=== PATIENT | male | born 1955 | race Hispanic/Latino ===

== ENCOUNTER 2018-03-02 20:35 | Inpatient (IN) | payer MEDICARE ==
[2018-03-02] MEDS ORDERED: Dextrose 50% SYRINGE Inj (50 ml) ONE ×2 (20:38→22:43)
[2018-03-02] MEDS ORDERED: Dextrose 50% SYRINGE Inj (50 ml) IVP ONE ×3 (20:46→22:45)
[2018-03-02] MEDS ORDERED: Sodium Chloride 0.9% 1,000 ML IV STA (20:46)
[2018-03-02] MEDS ORDERED: Albuterol-Ipratrop 3 mg / 0.5 (3 ml) UD INH STA ×3 (20:52→21:31)
[2018-03-02 20:57] LABS: BASO # 0.1 K/uL (0.0-0.2); BASO % 0.6 % (0.0-2.0); EOS # 0.2 K/uL (0.0-0.7); EOS % 1.7 % (0.0-4.0); HEMOGLOBIN 10.9 g/dL (12.0-18.0); LYMPH # 0.7 K/uL (1.0-4.3); LYMPH % 6.7 % (20.0-40.0); MEAN CELL VOLUME 93.9 fl (80.0-94.0); MEAN CORPUSCULAR HEMOGLOBIN 32.3 pg (27.0-31.0); MEAN CORPUSCULAR HGB CONC 34.4 g/dL (33.0-37.0); MEAN PLATELET VOLUME 7.3 fl (7.2-11.7); MONO # 0.9 K/uL (0.0-0.8); MONO % 8.4 % (0.0-10.0); NEUT # 8.9 K/uL (1.8-7.0); NEUT % 82.6 % (50.0-75.0); PLATELET COUNT 263 K/uL (130-400); RBC 3.38 Mil/uL (4.40-5.90); RED CELL DISTRIBUTION WIDTH 14.2 % (11.5-14.5); WHITE BLOOD COUNT 10.8 K/uL (4.8-10.8)
--- NOTE | 2018-03-02 21:03 | ED PDOC ---
HPI: Altered Mental Status Time Seen by Provider: 03/02/18 20:44 Chief Complaint (Nursing): Altered Mental Status Chief Complaint (Provider): Altered Mental Status History Per: EMS History/Exam Limitations: Clinical Condition Onset/Duration Of Symptoms: Mins Current Symptoms Are (Timing): Still Present Exacerbating Factor(s): Diabetic Additional Complaint(s): 62 y/o male with a PMHx of CHF, HTN, and DM brought in by ambulance for altered mental status. Patient was picked up at his house and was very confused. EMS report he was supposedly "drinking alcohol". Patient is unable to give history due to current clinical condition. PMD: None Provided Past Medical History Reviewed: Historical Data, Nursing Documentation, Vital Signs Vital Signs: Last Vital Signs Temp 97.5 F L 03/02/18 20:50 Pulse 71 03/02/18 20:50 Resp 20 03/02/18 20:50 BP 187/80 H 03/02/18 20:50 Pulse Ox 99 03/02/18 20:50 - Medical History PMH: CHF, CVA (x3), Diabetes, HTN, Kidney Stones, Chronic Kidney Disease - Surgical History Surgical History: No Surg Hx - Family History Family History: States: Unknown Family Hx - Immunization History Hx Tetanus Toxoid Vaccination: No Hx Influenza Vaccination: No Hx Pneumococcal Vaccination: No - Home Medications Home Medications: Ambulatory Orders Medication Instructions Recorded Amlodipine Besylate [Amlodipine 10 mg PO DAILY 03/02/18 Besilate] Aspirin [Aspirin Chewable] 81 mg PO DAILY 03/02/18 Atorvastatin [Lipitor] 10 mg PO DAILY 03/02/18 Carvedilol [Coreg] 25 mg PO BID 03/02/18 Glimepiride [amaRYL] 2 mg PO DAILY 03/02/18 - Allergies Allergies/Adverse Reactions: Allergies Allergy/AdvReac Type Severity Reaction Status Date / Time No Known Allergies Allergy Verified 06/02/17 09:47 Review of Systems ROS Statement: Except As Marked, All Systems Reviewed And Found Negative Neurological: Positive for: Altered Mental Status Physical Exam - Reviewed Nursing Documentation Reviewed: Yes Vital Signs Reviewed: Yes - Physical Exam Appears: Positive for: In Acute Distress Head Exam: Positive for: ATRAUMATIC, NORMOCEPHALIC Skin: Positive for: Normal Color, Diaphoresis Eye Exam: Positive for: Normal appearance, EOMI, PERRL ENT: Positive for: Normal ENT Inspection Neck: Positive for: Normal, Painless ROM Cardiovascular/Chest: Positive for: Regular Rate, Rhythm, Edema (bilateral leg swelling). Negative for: Murmur Respiratory: Positive for: Decreased Breath Sounds (Coarse breath sounds), Respiratory Distress Pulses-Radial (L): 2+ Pulses-Radial (R): 2+ Gastrointestinal/Abdominal: Positive for: Normal Exam, Soft. Negative for: Tenderness Extremity: Positive for: Normal ROM. Negative for: Deformity Neurologic/Psych: Positive for: Alert (awake and confused) - Laboratory Results Result Diagrams: 03/02/18 20:53 03/02/18 20:53 - ECG ECG: Positive for: Interpreted By Me, Viewed By Me ECG Rhythm: Positive for: Normal QRS, Normal ST Segment, Sinus Rhythm, Right Bundle Branch Block, Nonspecific Changes Rate: 71 O2 Sat by Pulse Oximetry: 99 (RA) Pulse Ox Interpretation: Normal - Radiology X-Ray: Interpreted by Me, Viewed By Me X-Ray Interpretation: Cardiomegaly - Critical Care Total Time (In Min): 120 Documented Critical Care: Time excludes all time spent performint seperately billable procedures Medical Decision Making Medical Decision Making: Time: 2055 Impression: Altered Mental Status Differentials include but not limited to hypoglycemia, EtOH intoxication, respiratory failure due to CHF exacerbation and COPD. Plan: -- ABG -- VBG -- Head CT w/o Contrast -- EKG -- Alcohol Serum -- Ammonia -- BNP -- CMP -- Urine Drug Screen -- Lipase -- Troponin I -- Dextrose 50% Inj 50 ml IVP -- Dextrose 50% Inj 50 ml IVP -- [Duoneb 3 mg/0.5 mg (3ml) UD] 3 ml INH -- Lasix 40 mg IVP -- Sodium Chloride IV 1000 mls/hr -- Nitrostat SL 0.4 mg SL -- Blood Culture -- Peak Flow Pre/Post Tx -- Accucheck upon arrival was less than 20. Two D50s were administered. Time: 2199 -- Spoke to Dr. Donaldson to admit patient to the ICU for persistent hypoglycemia. Time: [address] RESULTS FINDINGS: Brain: No hemorrhage. Left frontal encephalomalacia. Right frontal periventricular lacunar infarct. Moderate large periventricular microischemic changes. No edema. Ventricles: Appropriate for patient's age. Bones/joints: No acute fracture. Soft tissues: Small soft tissue hematoma soft tissue swelling left frontal vertex scalp. Sinuses: No acute sinusitis. Mastoid air cells: No mastoid effusion. IMPRESSION: No acute CT intracranial abnormalities. Thank you for allowing us to participate in the care of your patient. Dictated and Authenticated by: Feuntes Walsh MD 03/02/2018 10:30 PM Eastern Time ([place] & [place]) Time: 2308 -- After reviewing medication prescribed by Dr. Lagos, provider made an assumption that he is his PMD. Patient will be admitted under the service of the hospitalist covering for Dr. Lagos. [address] Espinal who will be on consult for CHF and hypertension. 29 Call given to nephrology production statistical clerk. Scribe Attestation: Documented by Julianne Gauthier acting as a scribe for Dr. Michael Alva MD. Provider Scribe Attestation: All medical record entries made by the Scribe were at my direction and personally dictated by me. I have reviewed the chart and agree that the record accurately reflects my personal performance of the history, physical exam, medical decision making, and the department course for this patient. I have also personally directed, reviewed, and agree with the discharge instructions and disposition. Disposition - Clinical Impression Clinical Impression: Altered mental status, CHF (congestive heart failure), Alcohol abuse, CKD stage 4 due to type 2 diabetes mellitus, Renal failure, Uncontrolled hypertension, Hypokalemia, Hypoglycemia - Patient ED Disposition Is Patient to be Admitted: Yes Discussed With : Aries Donaldson Doctor Will See Patient In The: ED Counseled Patient/Family Regarding: Studies Performed, Diagnosis - Disposition Disposition Time: 22:30 Condition: CRITICAL - Pt Status Changed To: Hospital Disposition Of: Inpatient - Admit Certification Admit to Inpatient:: After my assessment, the patient will require hospitalization for at least two midnights. This is because of the severity of symptoms shown, intensity of services needed, and/or the medical risk in this patient being treated as an outpatient. - POA Present On Arrival: Poor Glycemic Control
[2018-03-02 21:04] LABS: VENOUS BLOOD GAS BASE EXCESS -8.1 mmol/L (0.0-2.0); VENOUS BLOOD GAS PCO2 43 mmHg (40-60); VENOUS BLOOD GAS PO2 29 mm/Hg (30-55); VENOUS BLOOD PH 7.25 (7.32-7.43)
[2018-03-02 21:11] LABS: ABG ALLEN TEST YES; ARTERIAL BLOOD GAS HCO3 19.3 mmol/L (21-28); ARTERIAL BLOOD GAS HEMOGLOBIN 10.1 g/dL (11.7-17.4); ARTERIAL BLOOD GAS O2 CAPACITY 13.9 mL/dL (16-24); ARTERIAL BLOOD GAS O2 CONTENT 13.7 ML/dL (15-23); ARTERIAL BLOOD GAS O2 SAT 98.8 % (95-98); ARTERIAL BLOOD GAS PCO2 33 mm/Hg (35-45); ARTERIAL BLOOD GAS PH 7.34 (7.35-7.45); ARTERIAL BLOOD GAS PO2 89 mm/Hg (80-100); ARTERIAL BLOOD GAS TCO2 18.8 mmol/L (22-28)
[2018-03-02 21:14] LABS: ALB/GLOB RATIO 1.2 (1.0-2.1); ALBUMIN 3.7 g/dL (3.5-5.0); ALT/SGPT 21 U/L (21-72); AST/SGOT 17 U/L (17-59); BLOOD UREA NITROGEN 56 mg/dl (9-20); CALCIUM 8.1 mg/dL (8.4-10.2); GFR AFRICAN-AMERICAN 16; GFR NON-AFRICAN AMERICAN 13; LIPASE 267 U/L (23-300)
[2018-03-02 21:17] LABS: B-TYPE NATRIURETIC PEPTIDE 3200 pg/ml (0-900)
[2018-03-02 21:57] LABS: BANDS 3 % (0-2); BASOPHIL 1 % (0-2); EOSINOPHIL 2 % (0-7); LYMPHOCYTE 10 % (20-50); MONOCYTE 8 % (0-10); NEUTROPHIL 76 % (42-75); TOTAL CELLS COUNTED 100
[2018-03-02 21:58] LABS: ANISOCYTOSIS MODERATE; HYPOCHROMIC SLIGHT; PLATELET ESTIMATE NORMAL (NORMAL); POLYCHROMIC SLIGHT; TOXIC GRANULATION PRESENT
[2018-03-02] MEDS ORDERED: Albuterol-Ipratrop 3 mg / 0.5 (3 ml) UD ONE (22:50)
[2018-03-02 22:53] LABS: BARBITURATES, UR NEGATIVE (NEGATIVE); BENZODIAZEPINES, UR NEGATIVE (NEGATIVE); OPIATES, UR NEGATIVE (NEGATIVE); PHENCYCLIDINE, UR NEGATIVE (NEGATIVE)
--- NOTE | 2018-03-02 23:10 | CP.PCM.HP ---
History of Present Illness - History of Present Illness History of Present Illness: PMD: Dr Lagos Chief Complaint: AMS The patient was seen and examined in the ED HPI: The hx was obtained from the ED Physician and after review of the medical records. He is a 62 years old male with hx of CHF, HTN, CKD refusing dialysis in the past, and DM on Glimepiride. He was brought to the ED from home with Altered Mental Status, confused, unable to give history. The EMS thought that he had been drinking Alcohol. In the ED the nurse noted that the patient was non verbal and unresponsive. He was able to be aroused later in the ED after receiving IV Dextrose. His blood Glucose was 20mg/dl and he received 2Ampsof D50 (50g). His blood glucose of recheck was only 70g/dl.His blood pressure was also elevated at 187/80mmHg. PMH: CHF diastolic dysfunction;( ECHO 06/02/17- EF 60-65 with Hypertensive heart disease and Diastolic dysfunvtion); CVA (x3) first 1973; DM II; HTN, Kidney Stones, CKD refused Dialysis in the past; A Fib apparently off anticoagulation, was on Xarelto in the past; PSH: No surgery noted in records SH: former Smoker quit 25 years ago; No illegal substance use; Used Alcohol in the past; Uses a walker to ambulate FH: Unknown family Hx as pte id unable to give information Allergy: NKDA Medication: Reviewed Present on Admission - Present on Admission Any Indicators Present on Admission: Yes History of DVT/PE: No History of Uncontrolled Diabetes: Yes Urinary Catheter: No Decubitus Ulcer Present: No Review of Systems - Review of Systems Systems not reviewed;Unavailable: Altered Mental Status Review of Systems: Review of systems limited because of AMS. Past Patient History - Infectious Disease Hx of Infectious Diseases: None - Past Medical History & Family History Past Medical History?: Yes - Past Social History Smoking Status: Former Smoker Chewing Tobacco Use: No Cigar Use: No Alcohol: Other Drugs: Denies - CARDIAC Hx Congestive Heart Failure: Yes Hx Hypertension: Yes - PULMONARY Hx Respiratory Disorders: No - NEUROLOGICAL Hx Neurological Disorder: Yes HX Cerebrovascular Accident: Yes - HEENT Hx HEENT Problems: No - RENAL Hx Chronic Kidney Disease: Yes Hx Kidney Stones: Yes - ENDOCRINE/METABOLIC Hx Endocrine Disorders: Yes Hx Diabetes Mellitus Type 2: Yes - HEMATOLOGICAL/ONCOLOGICAL Hx Blood Disorders: No Hx Blood Transfusions: No - INTEGUMENTARY Hx Dermatological Problems: No - MUSCULOSKELETAL/RHEUMATOLOGICAL Hx Musculoskeletal Disorders: No Hx Falls: No - GASTROINTESTINAL Hx Gastrointestinal Disorders: No - GENITOURINARY/GYNECOLOGICAL Hx Genitourinary Disorders: No - PSYCHIATRIC Hx Psychophysiologic Disorder: No Hx Substance Use: No - SURGICAL HISTORY Hx Surgeries: No - ANESTHESIA Hx Anesthesia: No Meds Allergies/Adverse Reactions: Allergies Allergy/AdvReac Type Severity Reaction Status Date / Time No Known Allergies Allergy Verified 06/02/17 09:47 Physical Exam - Constitutional Additional comments: Obtunded, wakes up with being shaken heavily but returns to sleep. - Head Exam Head Exam: ATRAUMATIC, NORMAL INSPECTION, NORMOCEPHALIC - Eye Exam Additional comments: Pupils equal andreacting sluggish to light - ENT Exam ENT Exam: Mucous Membranes Dry, Normal Oropharynx - Neck Exam Neck exam: Positive for: Normal Inspection. Negative for: Lymphadenopathy - Respiratory Exam Respiratory Exam: absent: Rales, Wheezes Additional comments: Expectory Rhonchi diffuse in both lung kline - Cardiovascular Exam Cardiovascular Exam: REGULAR RHYTHM, RRR, +S1, +S2. absent: Gallop - GI/Abdominal Exam GI & Abdominal Exam: Normal Bowel Sounds, Soft. absent: Mass, Organomegaly - Rectal Exam Rectal Exam: Deferred - Extremities Exam Additional comments: 1+ Pitting edema at both lower extremities - Back Exam Back exam: NORMAL INSPECTION - Neurological Exam Additional comments: Semicomatous. No response to verbal commands. responds to shoulder being shaken vinously, opening the eyes. - Psychiatric Exam Additional comments: Responds to being shaken - Skin Skin Exam: Dry, Intact, Normal Color, Warm Results - Vital Signs Recent Vital Signs: Last Vital Signs Temp 97.5 F L 03/02/18 22:17 Pulse 49 L 03/02/18 22:17 Resp 16 03/02/18 22:17 BP 166/75 H 03/02/18 22:17 Pulse Ox 99 03/02/18 22:39 - Labs Result Diagrams: 03/02/18 20:53 03/02/18 20:53 Labs: Laboratory Results - last 24 hr 03/02/18 03/02/18 03/02/18 20:45 20:53 20:53 WBC 10.8 RBC 3.38 L Hgb 10.9 L Hct 31.8 L MCV 93.9 MCH 32.3 H MCHC 34.4 RDW 14.2 Plt Count 263 MPV 7.3 Neut % (Auto) 82.6 H Lymph % (Auto) 6.7 L Mcleod % (Auto) 8.4 Eos % (Auto) 1.7 Baso % (Auto) 0.6 Neut # (Auto) 8.9 H Lymph # (Auto) 0.7 L Mcleod # (Auto) 0.9 H Eos # (Auto) 0.2 Baso # (Auto) 0.1 Neutrophils % (Manual) 76 H Band Neutrophils % 3 H Lymphocytes % (Manual) 10 L Monocytes % (Manual) 8 Eosinophils % (Manual) 2 Basophils % (Manual) 1 Toxic Granulation Present Platelet Estimate Normal Polychromasia Slight Hypochromasia (manual) Slight Anisocytosis (manual) Moderate pCO2 pO2 HCO3 ABG pH ABG Total CO2 ABG O2 Saturation ABG O2 Content ABG Base Excess ABG Hemoglobin ABG Carboxyhemoglobin POC ABG HHb (Measured) ABG Methemoglobin ABG O2 Capacity Zeus Test VBG pH VBG pCO2 VBG HCO3 VBG Total CO2 VBG O2 Sat (Calc) VBG Base Excess VBG Potassium A-a O2 Difference Hgb O2 Saturation Glucose Lactate Vent Mode FiO2 Sodium 134 Potassium 3.2 L Chloride 103 Carbon Dioxide 17 L Anion Gap 17 BUN 56 H Creatinine 4.5 H Est GFR ( Amer) 16 Est GFR (Non-Af Amer) 13 POC Glucose (mg/dL) Random Glucose 316 H Calcium 8.1 L Total Bilirubin 0.4 AST 17 D ALT 21 Alkaline Phosphatase 99 Ammonia 13 L Troponin I 0.0410 NT-Pro-B Natriuret Pep 3200 H Total Protein 6.8 Albumin 3.7 Globulin 3.0 Albumin/Globulin Ratio 1.2 Lipase 267 Venous Blood Potassium Urine Opiates Screen Urine Methadone Screen Ur Barbiturates Screen Ur Phencyclidine Scrn Ur Amphetamines Screen U Benzodiazepines Scrn U Oth Cocaine Metabols U Cannabinoids Screen Alcohol, Quantitative < 10 03/02/18 03/02/18 03/02/18 20:56 21:03 22:06 WBC RBC Hgb Hct MCV MCH MCHC RDW Plt Count MPV Neut % (Auto) Lymph % (Auto) Mcleod % (Auto) Eos % (Auto) Baso % (Auto) Neut # (Auto) Lymph # (Auto) Mcleod # (Auto) Eos # (Auto) Baso # (Auto) Neutrophils % (Manual) Band Neutrophils % Lymphocytes % (Manual) Monocytes % (Manual) Eosinophils % (Manual) Basophils % (Manual) Toxic Granulation Platelet Estimate Polychromasia Hypochromasia (manual) Anisocytosis (manual) pCO2 33 L pO2 29 L 89 HCO3 19.3 L ABG pH 7.34 L ABG Total CO2 18.8 L ABG O2 Saturation 98.8 H ABG O2 Content 13.7 L ABG Base Excess -7.2 L ABG Hemoglobin 10.1 L ABG Carboxyhemoglobin 0.8 POC ABG HHb (Measured) 1.2 ABG Methemoglobin 2.6 ABG O2 Capacity 13.9 L Zeus Test Yes VBG pH 7.25 L VBG pCO2 43 VBG HCO3 17.1 VBG Total CO2 20.2 L VBG O2 Sat (Calc) 66.3 H VBG Base Excess -8.1 L VBG Potassium 2.9 L A-a O2 Difference 19.0 Hgb O2 Saturation 95.4 Glucose 335 H Lactate 1.1 Vent Mode Room air FiO2 21.0 21.0 Sodium 135.0 Potassium Chloride 103.0 Carbon Dioxide Anion Gap BUN Creatinine Est GFR ( Amer) Est GFR (Non-Af Amer) POC Glucose (mg/dL) Random Glucose Calcium Total Bilirubin AST ALT Alkaline Phosphatase Ammonia Troponin I NT-Pro-B Natriuret Pep Total Protein Albumin Globulin Albumin/Globulin Ratio Lipase Venous Blood Potassium 2.9 L Urine Opiates Screen Negative Urine Methadone Screen Negative Ur Barbiturates Screen Negative Ur Phencyclidine Scrn Negative Ur Amphetamines Screen Negative U Benzodiazepines Scrn Negative U Oth Cocaine Metabols Negative U Cannabinoids Screen Negative Alcohol, Quantitative 03/02/18 03/02/18 03/02/18 22:09 22:31 23:02 WBC RBC Hgb Hct MCV MCH MCHC RDW Plt Count MPV Neut % (Auto) Lymph % (Auto) Mcleod % (Auto) Eos % (Auto) Baso % (Auto) Neut # (Auto) Lymph # (Auto) Mcleod # (Auto) Eos # (Auto) Baso # (Auto) Neutrophils % (Manual) Band Neutrophils % Lymphocytes % (Manual) Monocytes % (Manual) Eosinophils % (Manual) Basophils % (Manual) Toxic Granulation Platelet Estimate Polychromasia Hypochromasia (manual) Anisocytosis (manual) pCO2 pO2 HCO3 ABG pH ABG Total CO2 ABG O2 Saturation ABG O2 Content ABG Base Excess ABG Hemoglobin ABG Carboxyhemoglobin POC ABG HHb (Measured) ABG Methemoglobin ABG O2 Capacity Zeus Test VBG pH VBG pCO2 VBG HCO3 VBG Total CO2 VBG O2 Sat (Calc) VBG Base Excess VBG Potassium A-a O2 Difference Hgb O2 Saturation Glucose Lactate Vent Mode FiO2 Sodium Potassium Chloride Carbon Dioxide Anion Gap BUN Creatinine Est GFR ( Amer) Est GFR (Non-Af Amer) POC Glucose (mg/dL) 71 57 L 141 H Random Glucose Calcium Total Bilirubin AST ALT Alkaline Phosphatase Ammonia Troponin I NT-Pro-B Natriuret Pep Total Protein Albumin Globulin Albumin/Globulin Ratio Lipase Venous Blood Potassium Urine Opiates Screen Urine Methadone Screen Ur Barbiturates Screen Ur Phencyclidine Scrn Ur Amphetamines Screen U Benzodiazepines Scrn U Oth Cocaine Metabols U Cannabinoids Screen Alcohol, Quantitative - Impressions Impression: NSR 71/min with signs of Left Atrial enlargement and elevated ST segments in V1- 2 - Imaging and Cardiology CT scan - head Status: Image reviewed by me, Report reviewed by me Additional comment: EXAM: FINDINGS: Brain: No hemorrhage. Left frontal encephalomalacia. Right frontal periventricular lacunar infarct. Moderate large periventricular microischemic changes. No edema. Ventricles: Appropriate for patient's age. Bones/joints: No acute fracture. Soft tissues: Small soft tissue hematoma soft tissue swelling left frontal vertex scalp. Sinuses: No acute sinusitis. Mastoid air cells: No mastoid effusion. IMPRESSION: No acute CT intracranial abnormalities. Chest x-ray Status: Image reviewed by me Additional comment: Increased cardiac silhouette Increased bronchovascular markings Assessment & Plan - Assessment and Plan (Free Text) Assessment: #. DM II with hypoglycemic coma #. Uncontrolled HTN #. CKD stage V #. Hypokalemia #. Chronic CHF diastolic Dysfunction #. Anemia of Chronic Disease #. Bronchospasm Plan: 62 years old male with hx of CHF, HTN, CKD refusing dialysis in the past, and DM on Glimepiride, brought to the ED with Altered Mental Status, confused, unable to give history. Non verbal and unresponsive in ED. He was able to be aroused later after receiving IV Dextrose. His blood Glucose was 20mg/dl and he received 2Ampsof D50 (50g). His blood glucose of recheck was only 70g/dl.His blood pressure was also elevated at 187/80mmHg. #. DM II with hypoglycemic coma due to Glimepiride in patient with CKD and possible metabolic encephalopathy - Admit to ICU - IV Fluid with D10 at 70mls/hr - Accucheck Q1H and titrate Dextrose accordingly - HbA1c #. Uncontrolled HTN - Patient is NPO because of AMS - Hold Oral medication - Hydralizine 20mg IV Q 6H #. CKD stage V ( patient refuse Dialysis in the pst) - Consult Dr Aguilar arts administrator - Gentle IV fluid rehydration #. Hypokalemia probably due to poor intake and the Beta Agonist used - Repleted - Follow electrolytes #. Chronic CHF diastolic Dysfunction. Pro BNP is elevated, although this could be due to the CKD - Consult Dr Tommy Espinal - Repeat ECHO for new EF - Serial Troponin - Serial EKG #. Anemia of Chronic Disease - Follow B12/ Folate and Iron panel - Follow Hb #. Bronchospasm - Duoneb #. Stress ulcer prophylaxis with Pantoprazole #. DVT Prophylaxiw with Lovenox #. Code Status: Full - Date & Time Date: 03/02/18 Time: 23:09
[2018-03-02] MEDS ORDERED: Potassium CL 10 MEQ/50 ML 0 ML ONE (23:40)
[2018-03-03] MEDS: Potassium CL 10mEq/100ml 100 ML IVPB SCH (01:08)
[2018-03-03] MEDS ORDERED: Albuterol-Ipratrop 3 mg / 0.5 (3 ml) UD INH SCH (02:00)
--- NOTE | 2018-03-03 07:09 | RAD ---
Date of service: 03/02/2018 PROCEDURE: CHEST RADIOGRAPH, 1 VIEW HISTORY: ams COMPARISON: None available. FINDINGS: LUNGS: Clear. PLEURA: No pneumothorax or pleural fluid seen. CARDIOVASCULAR: Normal. OSSEOUS STRUCTURES: No significant abnormalities. VISUALIZED UPPER ABDOMEN: Normal. OTHER FINDINGS: None. IMPRESSION: No active disease.
--- NOTE | 2018-03-03 07:38 | CT ---
Date of service: 03/02/2018 PROCEDURE: CT HEAD WITHOUT CONTRAST. HISTORY: ams COMPARISON: None available. TECHNIQUE: Axial computed tomography images were obtained through the head/brain without intravenous contrast. Radiation dose: Total exam DLP = mGy-cm. This CT exam was performed using one or more of the following dose reduction techniques: Automated exposure control, adjustment of the mA and/or kV according to patient size, and/or use of iterative reconstruction technique. FINDINGS: HEMORRHAGE: No intracranial hemorrhage. BRAIN: No mass effect or edema. Chronic periventricular white matter ischemic disease and atrophy. VENTRICLES: Unremarkable. No hydrocephalus. CALVARIUM: Unremarkable. PARANASAL SINUSES: Unremarkable as visualized. No significant inflammatory changes. MASTOID AIR CELLS: Unremarkable as visualized. No inflammatory changes. OTHER FINDINGS: None. IMPRESSION: No intracranial hemorrhage.
--- NOTE | 2018-03-03 07:51 | CARD ---
APPROVED REPORT Date of service: 03/02/2018 <Conclusion> Normal sinus rhythm Possible Left atrial enlargement Incomplete right bundle branch block Possible Anterior infarct, age undetermined T wave abnormality, consider inferior ischemia Abnormal ECG
--- NOTE | 2018-03-03 08:14 | CARD ---
APPROVED REPORT Date of service: 03/03/2018 <Conclusion> Sinus rhythm Left axis deviation Left ventricular hypertrophy with repolarization abnormality Cannot rule out Septal infarct, age undetermined Prolonged QT Abnormal ECG
[2018-03-03 08:46] LABS: IRON 65 ug/dL (49-181)
[2018-03-03 08:49] LABS: CALCIUM 8.9 mg/dL (8.4-10.2)
[2018-03-03 08:51] LABS: HEMOGLOBIN 11.3 g/dL (12.0-18.0); MEAN CELL VOLUME 94.5 fl (80.0-94.0); MEAN CORPUSCULAR HEMOGLOBIN 32.6 pg (27.0-31.0); MEAN CORPUSCULAR HGB CONC 34.5 g/dL (33.0-37.0); RBC 3.46 Mil/uL (4.40-5.90); WHITE BLOOD COUNT 8.9 K/uL (4.8-10.8)
[2018-03-03 08:56] LABS: % IRON SATURATION 22 % (20-55); TOTAL IRON BINDING CAPACITY 299 ug/dL (250-450)
[2018-03-03 08:59] LABS: TROPONIN I 0.04 ng/mL (0.00-0.120)
--- NOTE | 2018-03-03 11:09 | CP.PCM.PN ---
Subjective - Date & Time of Evaluation Date of Evaluation: 03/03/18 Time of Evaluation: 10:00 - Subjective Subjective: Pt is now awake oriented follows commands denies SANTOS no CP no SOB states that his slurred speech and sl right weakness is old from previous CVA, walks with a cane. Objective - Vital Signs/Intake and Output Vital Signs (last 24 hours): Temp Pulse Resp BP Pulse Ox 98.4 F 96 H 21 172/78 H 97 03/03/18 08:00 03/03/18 09:05 03/03/18 08:00 03/03/18 09:05 03/03/18 08:00 Intake and Output: 03/03/18 03/03/18 06:59 18:59 Intake Total 450 Output Total 900 400 Balance -450 -400 - Medications Medications: Current Medications Albuterol/Ipratropium (Duoneb 3 Mg/0.5 Mg (3 Ml) Ud) 3 ml INH RQ6 [facility] Last Admin: 03/03/18 08:45 Dose: 3 ml Amlodipine Besylate (Norvasc) 10 mg PO DAILY [facility] Carvedilol (Coreg) 25 mg PO Q12 [facility] Heparin Sodium (Porcine) (Heparin) 5,000 units SC Q8 [facility] PRN Reason: Protocol Last Admin: 03/03/18 08:52 Dose: 5,000 units Hydralazine HCl (Apresoline) 20 mg IV Q6 [facility] Last Admin: 03/03/18 09:05 Dose: 20 mg Dextrose/Sodium Chloride (Dextrose 5%-0.45% Ns 500 Ml) 1,000 mls @ 50 mls/hr IV .Q20H [facility] Stop: 03/04/18 08:56 Pantoprazole Sodium (Protonix Inj) 40 mg IVP DAILY [facility] Last Admin: 03/03/18 08:52 Dose: 40 mg - Labs Labs: 03/03/18 07:35 03/03/18 07:35 - Constitutional Appears: Non-toxic, Older Than Stated Age, Chronically Ill - Head Exam Head Exam: NORMAL INSPECTION, NORMOCEPHALIC - Eye Exam Eye Exam: EOMI, Normal appearance Pupil Exam: NORMAL ACCOMODATION - ENT Exam ENT Exam: Mucous Membranes Moist, Normal External Ear Exam - Neck Exam Neck Exam: Full ROM. absent: Meningismus - Respiratory Exam Respiratory Exam: NORMAL BREATHING PATTERN. absent: Respiratory Distress - Cardiovascular Exam Cardiovascular Exam: REGULAR RHYTHM, +S1, +S2 - GI/Abdominal Exam GI & Abdominal Exam: Soft, Normal Bowel Sounds. absent: Tenderness - Extremities Exam Extremities Exam: Normal Capillary Refill. absent: Calf Tenderness, Pedal Edema - Back Exam Back Exam: absent: CVA tenderness (L), CVA tenderness (R) - Neurological Exam Neurological Exam: Alert, Awake Neuro motor strength exam: Left Upper Extremity: 5, Right Upper Extremity: 4, Left Lower Extremity: 5, Right Lower Extremity: 4 Additional comments: oriented to person and place slight dysarthria but comprehensible ( pt states old from previous CVA) - Psychiatric Exam Psychiatric exam: Normal Affect, Normal Mood - Skin Skin Exam: Dry, Normal Color, Warm Assessment and Plan - Assessment and Plan (Free Text) Assessment: 62 years old male with hx of CVA, CHF, HTN, CKD refusing dialysis in the past, and DM on Glimepiride, brought to the ED with Altered Mental Status, confused, unable to give history. Non verbal and unresponsive in ED. His blood Glucose was 20mg/dl and he received 2 Ampsof D50 (50g). His blood glucose of recheck was only 70g/dl. His blood pressure was also elevated at 187/80mmHg. Pt was admitted to ICU for close monitoring of Glucose and BP. 1. DM II with hypoglycemic coma due to Glimepiride in patient with CKD - Pt received D50 3 amps in the ED - IV Fluid with D10 at 70mls/hr - Accucheck Q1H and titrate Dextrose accordingly - HbA1c 2. Uncontrolled HTN - Hydralizine 20mg IV Q 6H -Cardio consulted- Dr Espinal -started Coreg and Norvasc -will add Hydralazine PO as BP not yet controlled 3. CKD stage V , worsening ( patient refused Dialysis in the past) - Consult Dr Aguilar architecture consultant - Gentle IV fluid rehydration 4. Hypokalemia probably due to poor intake and the Beta Agonist used - Repleted - Follow electrolytes 5. Chronic CHF diastolic Dysfunction. Pro BNP is elevated, although this could be due to the CKD - Consult Dr Tommy Espinal - Repeat ECHO for new EF - Serial Troponin- negative so far - Serial EKG 6. Anemia of Chronic Renal Disease #. Stress ulcer prophylaxis with Pantoprazole #. DVT Proph with Lovenox #. Code Status: Full
--- NOTE | 2018-03-03 12:04 | CP.PCM.CON ---
History of Present Illness - History of Present Illness History of Present Illness: This 62-year-old man was brought to the emergency room unresponsive and was found to have hypoglycemia with a blood sugar of 20 mg percent which promptly responded to intravenous infusion of glucose with improvement in his level of consciousness. The patient has a long history of hypertension and diabetes and his history was obtained by reviewing his old chart which included prior hospitalizations at [facility] and a visit to the emergency room for of cool intoxication. 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 He uses a walker at home. He is an ex- smoker who quit smoking more than 25 years back. Apparently the patient has been noncompliant as far as taking his medications is concerned. The patient is reluctant to answer questions readily. His contact phone number on his chart is nonfunctional. And his history was opted by reviewing his hospitalization charts since 2015. Physical examination shows a middle aged man was able to breathe comfortably lying virtually flat in bed. His respiratory rate was 16 breaths per minute and his heart rate was 90 bpm regular with a blood pressure of 190/70 mmHg. The patient had recently received albuterol respiratory treatment. His extremities were warm. His nailbeds were pink. There was no central or peripheral cyanosis. His pulse oximetry revealed and oxygen saturation of 98% while on oxygen supplement by nasal cannula. There was no pedal edema. The pedal pulses were feeble but distinct of present. There were no carotid bruits. The apex was not palpable the first and second heart sounds were normal. There was no murmur or gallop. Expedition was slightly prolonged there were no rales and there was no wheezing. Abdomen was soft and liver and spleen are not palpable. His electrocardiogram showed sinus rhythm with a pattern of left ventricular hypertrophy. His echocardiogram revealed a normal-sized left ventricle with preserved left ventricular systolic function and a depressed diastolic compliance. The pattern was identical to the echocardiogram of May 2017 at [facility]. His lab data was noted. The patient has had chronic azotemia and apparently he has declined to have hemodialysis. His troponin levels were ruled out any evidence of myocyte injury. Impression: Hypoglycemia probably secondary to irregular food intake while on 90 diabetic medications. History of hypertension and diabetes mellitus with multiple cerebrovascular accidents in the past, CKD stage III, (?ETOH abuse) I have reintroduced his antihypertensives regimen and withheld albuterol treatments which could aggravate his hypertension. At this point is hemodynamically stable. Past Patient History - Infectious Disease Hx of Infectious Diseases: None - Past Medical History & Family History Past Medical History?: Yes - Past Social History Smoking Status: Former Smoker Chewing Tobacco Use: No Cigar Use: No Alcohol: Other Drugs: Denies - CARDIAC Hx Congestive Heart Failure: Yes Hx Hypertension: Yes - PULMONARY Hx Respiratory Disorders: No - NEUROLOGICAL Hx Neurological Disorder: Yes HX Cerebrovascular Accident: Yes - HEENT Hx HEENT Problems: No - RENAL Hx Chronic Kidney Disease: Yes Hx Kidney Stones: Yes - ENDOCRINE/METABOLIC Hx Endocrine Disorders: Yes Hx Diabetes Mellitus Type 2: Yes - HEMATOLOGICAL/ONCOLOGICAL Hx Blood Disorders: No Hx Blood Transfusions: No - INTEGUMENTARY Hx Dermatological Problems: No - MUSCULOSKELETAL/RHEUMATOLOGICAL Hx Musculoskeletal Disorders: No Hx Falls: No - GASTROINTESTINAL Hx Gastrointestinal Disorders: No - GENITOURINARY/GYNECOLOGICAL Hx Genitourinary Disorders: No - PSYCHIATRIC Hx Psychophysiologic Disorder: No Hx Substance Use: No - SURGICAL HISTORY Hx Surgeries: No - ANESTHESIA Hx Anesthesia: No Meds Allergies/Adverse Reactions: Allergies Allergy/AdvReac Type Severity Reaction Status Date / Time No Known Allergies Allergy Verified 06/02/17 09:47 - Medications Medications: Current Medications Amlodipine Besylate (Norvasc) 10 mg PO DAILY [facility] Last Admin: 03/03/18 11:27 Dose: 10 mg Carvedilol (Coreg) 25 mg PO Q12 [facility] Last Admin: 03/03/18 11:27 Dose: 25 mg Heparin Sodium (Porcine) (Heparin) 5,000 units SC Q8 [facility] PRN Reason: Protocol Last Admin: 03/03/18 08:52 Dose: 5,000 units Hydralazine HCl (Apresoline) 20 mg IV Q6 [facility] Last Admin: 03/03/18 09:05 Dose: 20 mg Dextrose/Sodium Chloride (Dextrose 5%-0.45% Ns 500 Ml) 1,000 mls @ 50 mls/hr IV .Q20H [facility] Stop: 03/04/18 08:56 Last Admin: 03/03/18 09:00 Dose: 50 mls/hr Pantoprazole Sodium (Protonix Inj) 40 mg IVP DAILY [facility] Last Admin: 03/03/18 08:52 Dose: 40 mg Results - Vital Signs Recent Vital Signs: Last Vital Signs Temp 98.4 F 08/04/18 08:00 Pulse 91 H 03/03/18 11:27 Resp 21 03/03/18 08:00 BP 161/75 H 03/03/18 11:27 Pulse Ox 97 03/03/18 08:00 - Labs Result Diagrams: 03/03/18 07:35 03/03/18 07:35 Labs: Laboratory Results - last 24 hr 03/02/18 03/02/18 03/02/18 20:45 20:53 20:53 WBC 10.8 RBC 3.38 L Hgb 10.9 L Hct 31.8 L MCV 93.9 MCH 32.3 H MCHC 34.4 RDW 14.2 Plt Count 263 MPV 7.3 Neut % (Auto) 82.6 H Lymph % (Auto) 6.7 L Ocean % (Auto) 8.4 Eos % (Auto) 1.7 Baso % (Auto) 0.6 Neut # (Auto) 8.9 H Lymph # (Auto) 0.7 L Ocean # (Auto) 0.9 H Eos # (Auto) 0.2 Baso # (Auto) 0.1 Neutrophils % (Manual) 76 H Band Neutrophils % 3 H Lymphocytes % (Manual) 10 L Monocytes % (Manual) 8 Eosinophils % (Manual) 2 Basophils % (Manual) 1 Toxic Granulation Present Platelet Estimate Normal Polychromasia Slight Hypochromasia (manual) Slight Anisocytosis (manual) Moderate pCO2 pO2 HCO3 ABG pH ABG Total CO2 ABG O2 Saturation ABG O2 Content ABG Base Excess ABG Hemoglobin ABG Carboxyhemoglobin POC ABG HHb (Measured) ABG Methemoglobin ABG O2 Capacity Zeus Test VBG pH VBG pCO2 VBG HCO3 VBG Total CO2 VBG O2 Sat (Calc) VBG Base Excess VBG Potassium A-a O2 Difference Hgb O2 Saturation Glucose Lactate Vent Mode FiO2 Sodium 134 Potassium 3.2 L Chloride 103 Carbon Dioxide 17 L Anion Gap 17 BUN 56 H Creatinine 4.5 H Est GFR ( Amer) 16 Est GFR (Non-Af Amer) 13 POC Glucose (mg/dL) Random Glucose 316 H Calcium 8.1 L Iron TIBC % Saturation Total Bilirubin 0.4 AST 17 D ALT 21 Alkaline Phosphatase 99 Ammonia 13 L Troponin I 0.0410 NT-Pro-B Natriuret Pep 3200 H Total Protein 6.8 Albumin 3.7 Globulin 3.0 Albumin/Globulin Ratio 1.2 Lipase 267 Vitamin B12 Venous Blood Potassium Urine Opiates Screen Urine Methadone Screen Ur Barbiturates Screen Ur Phencyclidine Scrn Ur Amphetamines Screen U Benzodiazepines Scrn U Oth Cocaine Metabols U Cannabinoids Screen Alcohol, Quantitative < 10 03/02/18 03/02/18 03/02/18 20:56 21:03 21:12 WBC RBC Hgb Hct MCV MCH MCHC RDW Plt Count MPV Neut % (Auto) Lymph % (Auto) Ocean % (Auto) Eos % (Auto) Baso % (Auto) Neut # (Auto) Lymph # (Auto) Ocean # (Auto) Eos # (Auto) Baso # (Auto) Neutrophils % (Manual) Band Neutrophils % Lymphocytes % (Manual) Monocytes % (Manual) Eosinophils % (Manual) Basophils % (Manual) Toxic Granulation Platelet Estimate Polychromasia Hypochromasia (manual) Anisocytosis (manual) pCO2 33 L pO2 29 L 89 HCO3 19.3 L ABG pH 7.34 L ABG Total CO2 18.8 L ABG O2 Saturation 98.8 H ABG O2 Content 13.7 L ABG Base Excess -7.2 L ABG Hemoglobin 10.1 L ABG Carboxyhemoglobin 0.8 POC ABG HHb (Measured) 1.2 ABG Methemoglobin 2.6 ABG O2 Capacity 13.9 L Zeus Test Yes VBG pH 7.25 L VBG pCO2 43 VBG HCO3 17.1 VBG Total CO2 20.2 L VBG O2 Sat (Calc) 66.3 H VBG Base Excess -8.1 L VBG Potassium 2.9 L A-a O2 Difference 19.0 Hgb O2 Saturation 95.4 Glucose 335 H Lactate 1.1 Vent Mode Room air FiO2 21.0 21.0 Sodium 135.0 Potassium Chloride 103.0 Carbon Dioxide Anion Gap BUN Creatinine Est GFR ( Amer) Est GFR (Non-Af Amer) POC Glucose (mg/dL) 146 H Random Glucose Calcium Iron TIBC % Saturation Total Bilirubin AST ALT Alkaline Phosphatase Ammonia Troponin I NT-Pro-B Natriuret Pep Total Protein Albumin Globulin Albumin/Globulin Ratio Lipase Vitamin B12 Venous Blood Potassium 2.9 L Urine Opiates Screen Urine Methadone Screen Ur Barbiturates Screen Ur Phencyclidine Scrn Ur Amphetamines Screen U Benzodiazepines Scrn U Oth Cocaine Metabols U Cannabinoids Screen Alcohol, Quantitative 03/02/18 03/02/1803/02/18 22:06 22:09 22:31 WBC RBC Hgb Hct MCV MCH MCHC RDW Plt Count MPV Neut % (Auto) Lymph % (Auto) Ocean % (Auto) Eos % (Auto) Baso % (Auto) Neut # (Auto) Lymph # (Auto) Ocean # (Auto) Eos # (Auto) Baso # (Auto) Neutrophils % (Manual) Band Neutrophils % Lymphocytes % (Manual) Monocytes % (Manual) Eosinophils % (Manual) Basophils % (Manual) Toxic Granulation Platelet Estimate Polychromasia Hypochromasia (manual) Anisocytosis (manual) pCO2 pO2 HCO3 ABG pH ABG Total CO2 ABG O2 Saturation ABG O2 Content ABG Base Excess ABG Hemoglobin ABG Carboxyhemoglobin POC ABG HHb (Measured) ABG Methemoglobin ABG O2 Capacity Zeus Test VBG pH VBG pCO2 VBG HCO3 VBG Total CO2 VBG O2 Sat (Calc) VBG Base Excess VBG Potassium A-a O2 Difference Hgb O2 Saturation Glucose Lactate Vent Mode FiO2 Sodium Potassium Chloride Carbon Dioxide Anion Gap BUN Creatinine Est GFR ( Amer) Est GFR (Non-Af Amer) POC Glucose (mg/dL) 71 57 L Random Glucose Calcium Iron TIBC % Saturation Total Bilirubin AST ALT Alkaline Phosphatase Ammonia Troponin I NT-Pro-B Natriuret Pep Total Protein Albumin Globulin Albumin/Globulin Ratio Lipase Vitamin B12 Venous Blood Potassium Urine Opiates Screen Negative Urine Methadone Screen Negative Ur Barbiturates Screen Negative Ur Phencyclidine Scrn Negative Ur Amphetamines Screen Negative U Benzodiazepines Scrn Negative U Oth Cocaine Metabols Negative U Cannabinoids Screen Negative Alcohol, Quantitative 03/02/18 03/02/18 03/03/18 23:02 23:33 00:55 WBC RBC Hgb Hct MCV MCH MCHC RDW Plt Count MPV Neut % (Auto) Lymph % (Auto) Ocean % (Auto) Eos % (Auto) Baso % (Auto) Neut # (Auto) Lymph # (Auto) Ocean # (Auto) Eos # (Auto) Baso # (Auto) Neutrophils % (Manual) Band Neutrophils % Lymphocytes % (Manual) Monocytes % (Manual) Eosinophils % (Manual) Basophils % (Manual) Toxic Granulation Platelet Estimate Polychromasia Hypochromasia (manual) Anisocytosis (manual) pCO2 pO2 HCO3 ABG pH ABG Total CO2 ABG O2 Saturation ABG O2 Content ABG Base Excess ABG Hemoglobin ABG Carboxyhemoglobin POC ABG HHb (Measured) ABG Methemoglobin ABG O2 Capacity Zeus Test VBG pH VBG pCO2 VBG HCO3 VBG Total CO2 VBG O2 Sat (Calc) VBG Base Excess VBG Potassium A-a O2 Difference Hgb O2 Saturation Glucose Lactate Vent Mode FiO2 Sodium Potassium Chloride Carbon Dioxide Anion Gap BUN Creatinine Est GFR ( Amer) Est GFR (Non-Af Amer) POC Glucose (mg/dL) 141 H 127 H 121 H Random Glucose Calcium Iron TIBC % Saturation Total Bilirubin AST ALT Alkaline Phosphatase Ammonia Troponin I NT-Pro-B Natriuret Pep Total Protein Albumin Globulin Albumin/Globulin Ratio Lipase Vitamin B12 Venous Blood Potassium Urine Opiates Screen Urine Methadone Screen Ur Barbiturates Screen Ur Phencyclidine Scrn Ur Amphetamines Screen U Benzodiazepines Scrn U Oth Cocaine Metabols U Cannabinoids Screen Alcohol, Quantitative 03/03/18 03/03/18 03/03/18 02:01 03:03 04:36 WBC RBC Hgb Hct MCV MCH MCHC RDW Plt Count MPV Neut % (Auto) Lymph % (Auto) Ocean % (Auto) Eos % (Auto) Baso % (Auto) Neut # (Auto) Lymph # (Auto) Ocean # (Auto) Eos # (Auto) Baso # (Auto) Neutrophils % (Manual) Band Neutrophils % Lymphocytes % (Manual) Monocytes % (Manual) Eosinophils % (Manual) Basophils % (Manual) Toxic Granulation Platelet Estimate Polychromasia Hypochromasia (manual) Anisocytosis (manual) pCO2 pO2 HCO3 ABG pH ABG Total CO2 ABG O2 Saturation ABG O2 Content ABG Base Excess ABG Hemoglobin ABG Carboxyhemoglobin POC ABG HHb (Measured) ABG Methemoglobin ABG O2 Capacity Zeus Test VBG pH VBG pCO2 VBG HCO3 VBG Total CO2 VBG O2 Sat (Calc) VBG Base Excess VBG Potassium A-a O2 Difference Hgb O2 Saturation Glucose Lactate Vent Mode FiO2 Sodium Potassium Chloride Carbon Dioxide Anion Gap BUN Creatinine Est GFR ( Amer) Est GFR (Non-Af Amer) POC Glucose (mg/dL) 142 H 177 H 213 H Random Glucose Calcium Iron TIBC % Saturation Total Bilirubin AST ALT Alkaline Phosphatase Ammonia Troponin I NT-Pro-B Natriuret Pep Total Protein Albumin Globulin Albumin/Globulin Ratio Lipase Vitamin B12 Venous Blood Potassium Urine Opiates Screen Urine Methadone Screen Ur Barbiturates Screen Ur Phencyclidine Scrn Ur Amphetamines Screen U Benzodiazepines Scrn U Oth Cocaine Metabols U Cannabinoids Screen Alcohol, Quantitative 03/03/18 03/03/18 03/03/18 06:22 07:35 07:35 WBC 8.9 RBC 3.46 L Hgb 11.3 L Hct 32.7 L MCV 94.5 H MCH 32.6 H MCHC 34.5 RDW 14.0 Plt Count 271 MPV Neut % (Auto) Lymph % (Auto) Ocean % (Auto) Eos % (Auto) Baso % (Auto) Neut # (Auto) Lymph # (Auto) Ocean # (Auto) Eos # (Auto) Baso # (Auto) Neutrophils % (Manual) Band Neutrophils % Lymphocytes % (Manual) Monocytes % (Manual) Eosinophils % (Manual) Basophils % (Manual) Toxic Granulation Platelet Estimate Polychromasia Hypochromasia (manual) Anisocytosis (manual) pCO2 pO2 HCO3 ABG pH ABG Total CO2 ABG O2 Saturation ABG O2 Content ABG Base Excess ABG Hemoglobin ABG Carboxyhemoglobin POC ABG HHb (Measured) ABG Methemoglobin ABG O2 Capacity Zeus Test VBG pH VBG pCO2 VBG HCO3 VBG Total CO2 VBG O2 Sat (Calc) VBG Base Excess VBG Potassium A-a O2 Difference Hgb O2 Saturation Glucose Lactate Vent Mode FiO2 Sodium 135 Potassium 3.5 L Chloride 104 Carbon Dioxide 17 L Anion Gap 18 BUN 54 H Creatinine 4.5 H Est GFR ( Amer) 16 Est GFR (Non-Af Amer) 13 POC Glucose (mg/dL) 283 H Random Glucose 302 H Calcium 8.9 Iron TIBC % Saturation Total Bilirubin AST ALT Alkaline Phosphatase Ammonia Troponin I 0.0400 NT-Pro-B Natriuret Pep Total Protein Albumin Globulin Albumin/Globulin Ratio Lipase Vitamin B12 659 Venous Blood Potassium Urine Opiates Screen Urine Methadone Screen Ur Barbiturates Screen Ur Phencyclidine Scrn Ur Amphetamines Screen U Benzodiazepines Scrn U Oth Cocaine Metabols U Cannabinoids Screen Alcohol, Quantitative 03/03/18 03/03/18 03/03/18 07:35 08:25 10:00 WBC RBC Hgb Hct MCV MCH MCHC RDW Plt Count MPV Neut % (Auto) Lymph % (Auto) Ocean % (Auto) Eos % (Auto) Baso % (Auto) Neut # (Auto) Lymph # (Auto) Ocean # (Auto) Eos # (Auto) Baso # (Auto) Neutrophils % (Manual) Band Neutrophils % Lymphocytes % (Manual) Monocytes % (Manual) Eosinophils % (Manual) Basophils % (Manual) Toxic Granulation Platelet Estimate Polychromasia Hypochromasia (manual) Anisocytosis (manual) pCO2 pO2 HCO3 ABG pH ABG Total CO2 ABG O2 Saturation ABG O2 Content ABG Base Excess ABG Hemoglobin ABG Carboxyhemoglobin POC ABG HHb (Measured) ABG Methemoglobin ABG O2 Capacity Zeus Test VBG pH VBG pCO2 VBG HCO3 VBG Total CO2 VBG O2 Sat (Calc) VBG Base Excess VBG Potassium A-a O2 Difference Hgb O2 Saturation Glucose Lactate Vent Mode FiO2 Sodium Potassium Chloride Carbon Dioxide Anion Gap BUN Creatinine Est GFR ( Amer) Est GFR (Non-Af Amer) POC Glucose (mg/dL) 295 H Random Glucose Calcium Iron 65 TIBC 299 % Saturation 22 Total Bilirubin AST ALT Alkaline Phosphatase Ammonia Troponin I 0.0380 NT-Pro-B Natriuret Pep Total Protein Albumin Globulin Albumin/Globulin Ratio Lipase Vitamin B12 Venous Blood Potassium Urine Opiates Screen Urine Methadone Screen Ur Barbiturates Screen Ur Phencyclidine Scrn Ur Amphetamines Screen U Benzodiazepines Scrn U Oth Cocaine Metabols U Cannabinoids Screen Alcohol, Quantitative
--- NOTE | 2018-03-03 16:39 | CARD ---
APPROVED REPORT Date of service: 03/03/2018 EXAM: Two-dimensional and M-mode echocardiogram with Doppler and color Doppler. Other Information Quality : FairRhythm : Technically limited study due to body habitus. INDICATION 2D DIMENSIONS IVSd1.71 (0.7-1.1cm)LVDd4.66 (3.9-5.9cm) PWd1.76 (0.7-1.1cm)LVDs3.11 (2.5-4.0cm) FS (%) 33.2 % Mitral Valve MV E Anvsdpje36.0cm/sMV DECEL [id number] A Gypyuttm401.0cm/s MV CBF29rmX/A ratio0.7MVA (PHT)2.98cm2 TDI Lateral E' Peak V7.90cm/sE/Lateral E'9.7E/Medial E'0.0 Tricuspid Valve TR Peak Wpjweivs174ao/sTR Peak Gr.15mmHg LEFT VENTRICLE The left ventricle is normal size. There is mild to moderate concentric left ventricular hypertrophy. The left ventricular function is normal. The left ventricular ejection fraction is within the normal range with EF 55-60%. No regional wall motion abnormalities noted. Transmitral Doppler flow pattern is Grade I-abnormal relaxation pattern. No left ventricle thrombus noted on this study. There is no ventricular septal defect visualized. There is no left ventricular aneurysm. There is no mass noted in the left ventricle. RIGHT VENTRICLE The right ventricle is normal size. There is normal right ventricular wall thickness. The right ventricular systolic function is normal. ATRIA The left atrium is severely dilated. The right atrium size is normal. The interatrial septum is intact with no evidence for an atrial septal defect. AORTIC VALVE The aortic valve is normal in structure. No aortic regurgitation is present. There is no aortic valvular stenosis. There is no aortic valvular vegetation. MITRAL VALVE The mitral valve is normal in structure. There is no evidence of mitral valve prolapse. There is no mitral valve stenosis. There is no mitral valve regurgitation noted. TRICUSPID VALVE The tricuspid valve is normal in structure. There is trace to mild tricuspid regurgitation. There is no tricuspid valve prolapse or vegetation. There is no tricuspid valve stenosis. PULMONIC VALVE The pulmonary valve is normal in structure. There is no pulmonic valvular regurgitation. There is no pulmonic valvular stenosis. GREAT VESSELS The aortic root is normal in size. The ascending aorta is normal in size. The pulmonary artery is normal. The IVC is normal in size and collapses >50% with inspiration. PERICARDIAL EFFUSION The pericardium appears normal. There is no pleural effusion. <Conclusion> There is mild to moderate concentric left ventricular hypertrophy. The left ventricular ejection fraction is within the normal range with EF 55-60%. Transmitral Doppler flow pattern is Grade I-abnormal relaxation pattern. The left atrium is moderate to severely dilated. There is trace to mild tricuspid regurgitation.
--- NOTE | 2018-03-03 16:49 | CP.PCM.PN ---
Subjective - Date & Time of Evaluation Date of Evaluation: 03/03/18 Time of Evaluation: 16:45 - Subjective Subjective: Full consult dictated; patient having pronounced urinary retention with 1800 cc on bladder scan, relieved by straight cath; sending urine for UA and culture; HTN also improved on relieving distention; will check bladder scan later tonight ; Otherwise, renal function close to baseline, may have had some worsening due to urine retention; no urgent indication to start [employer], however, patient counseled on need for close nephrology f/u with renal function hovering at level for starting HD; Objective - Vital Signs/Intake and Output Vital Signs (last 24 hours): Temp Pulse Resp BP Pulse Ox 98.3 F 76 21 154/70 H 99 03/03/18 16:00 03/03/18 16:00 03/03/18 16:00 03/03/18 16:00 03/03/18 16:00 Intake and Output: 03/03/18 03/03/18 06:59 18:59 Intake Total 450 Output Total 900 2100 Balance -450 -2100 - Medications Medications: Current Medications Amlodipine Besylate (Norvasc) 10 mg PO DAILY [facility] Last Admin: 03/03/18 11:27 Dose: 10 mg Carvedilol (Coreg) 25 mg PO Q12 [facility] Last Admin: 03/03/18 11:27 Dose: 25 mg Heparin Sodium (Porcine) (Heparin) 5,000 units SC Q8 [facility] PRN Reason: Protocol Last Admin: 03/03/18 08:52 Dose: 5,000 units Hydralazine HCl (Apresoline) 20 mg IV Q6 [facility] Last Admin: 03/03/18 15:33 Dose: 20 mg Hydralazine HCl (Apresoline) 25 mg PO TID [facility] Dextrose/Sodium Chloride (Dextrose 5%-0.45% Ns 500 Ml) 1,000 mls @ 50 mls/hr IV .Q20H [facility] Stop: 03/04/18 08:56 Last Admin: 03/03/18 09:00 Dose: 50 mls/hr Pantoprazole Sodium (Protonix Inj) 40 mg IVP DAILY [facility] Last Admin: 03/03/18 08:52 Dose: 40 mg Polyethylene Glycol (Miralax) 17 gm PO DAILY [facility] - Labs Labs: 03/03/18 07:35 03/03/18 07:35
[2018-03-03 17:41] LABS: URINE BACTERIA RARE (<OCC); URINE BILIRUBIN NEGATIVE (NEGATIVE); URINE BLOOD NEGATIVE (NEGATIVE); URINE CLARITY CLEAR (Clear); URINE COLOR STRAW (YELLOW); URINE GLUCOSE (UA) >=500 mg/dL (Normal); URINE LEUKOCYTE ESTERASE NEG Leu/uL (Negative); URINE PROTEIN 100 mg/dL (NEGATIVE); URINE UROBILINOGEN 0.2-1.0 mg/dL (0.2-1.0)
[2018-03-03] MEDS: POLYETHYLENE GLYCOL 3350 17 GM/Dose PACKET PO SCH (17:59)
[2018-03-03] MEDS ORDERED: Glucagon Recombinant 1 mg Inj IM PRN (18:20)
[2018-03-03] MEDS ORDERED: Dextrose 50% SYRINGE Inj (50 ml) IV PRN (18:20)
[2018-03-03 19:17] LABS: FOLATE 11.9 ng/mL
--- NOTE | 2018-03-03 22:44 | PN ---
Copied To: Kev Gonzalez MD Attending MD: Kev Gonzalez MD DATE: 03/03/2018 CRITICAL CARE PROGRESS NOTE LOCATION: Patient in ICU, bed 434. TIME SPENT: 35 minutes. SUBJECTIVE: Patient is seen and evaluated at the bedside. Patient's past medical, surgical, social, and family history reviewed as noted in the history and physical. A 62-year-old male with history significant for diabetes type 2, hypertension, chronic kidney disease stage 5; declined dialysis in the past, atrial fibrillation; off anticoagulation, admitted through emergency room with altered mental status secondary to metabolic encephalopathy, noted to have blood sugar 20 mg on arrival, improved mental status after given D50, this morning. Alert and awake, able to follow simple commands, but appears lethargic, wants to sleep, requests to turn off light. Denies shortness of breath, chest pain, or palpitation. No abdominal discomfort or diarrhea. PHYSICAL EXAMINATION: VITAL SIGNS: Temperature 98.4, heart rate 91, respiratory rate 21, blood pressure 161-172/75-78, saturation 97% on 2 L nasal cannula. Intake 450, output 900, negative balance 450. Weight 230 pounds. HEAD, EYES, EARS, NOSE AND THROAT: Pupils are reactive. Conjunctivae are pink. Sclerae are white. NECK: Supple. No nystagmus. No facial drooping. CHEST: Bilateral breath sounds. Clear to auscultation. HEART: Rhythm regular. S1, S2 normal intensity. No S3, S4 gallop. ABDOMEN: Bowel sounds are present. Soft. Liver and spleen not palpable. Bladder not distended. EXTREMITIES: Trace edema. NEUROLOGIC: Alert and awake. Follows commands. Cranial nerves intact. No motor deficit. No gross sensory impairment. Plantar flexor. CURRENT MEDICATIONS Amlodipine 10 mg p.o. daily, Coreg 25 mg p.o. twice a day, D5 half normal at 50 mL/hour, heparin 5000 units subcu every 8 hours, hydralazine 20 mg IV every 6 hours, and Protonix 40 IV daily. LABORATORY DATA: WBC 8.9, hemoglobin 11.3, hematocrit 32.7, and platelet count of 271. ABG; pH 7.34, pCO2 of 33, pO2 of 89, and oxygen saturation 98.8% on room air. SMA-7; sodium 135, potassium 3.5, chloride of 104, CO2 of 17, blood urea nitrogen 54, creatinine 4.5, random glucose 295, and calcium 8.9. Iron 65, TIBC 299, and oxygen percentage iron saturation 22. Troponin 0.04 and 0.03. Vitamin B12 of 659. Toxicology, alcohol level less than 10. Urine drug screen negative. Microbiology, none reported. Head CT,No intracranial hemorrhage. No mass effect or edema. Chronic periventricular white matter ischemic disease and atrophy. Chest x-ray, no active disease. IMPRESSION: 1. Neurology: Altered mental status. Hypoglycemia noted on admission responded to D50. Now, remains alert and awake but still lethargic. Consider metabolic encephalopathy given his acute on chronic renal failure. 2. Pulmonary: No acute disease noted. 3. Cardiac: EKG shows inferior wall ischemic changes, being evaluated by Cardiology. Elevated troponin in the setting of chronic renal failure. 4. GI: No acute issues. 5. Endocrine: History of diabetes mellitus type 2. Currently, off antidiabetic medications secondary to hypoglycemia. Once patient is able to eat meals, we will start on Accu-Chek with regular insulin coverage. We will avoid oral hypoglycemic in the setting of chronic renal failure. Continue deep vein thrombosis and gastrointestinal prophylaxis. Maintain systolic blood pressure less than 140. Kev Gonzalez MD MTDD
--- NOTE | 2018-03-04 03:18 | CON ---
Copied To: Adama Aguilar MD Attending MD: Adama Aguilar MD DATE: 03/03/2018 LOCATION: [facility]. NEPHROLOGY CONSULTATION HISTORY OF PRESENT ILLNESS: A 62-year-old male with past medical history of hypertension, diabetes, CHF with diastolic dysfunction, status post CVA x3 and CKD stage 4/5, brought to ED from home due to altered mental status, found to be hypoglycemic and with hypertensive urgency. Nephrology being consulted for advanced renal insufficiency. The patient has a history of noncompliance with followup, cannot give history about why he came to ED, simply saying that he was drinking alcohol. He admits to drinking two beers per day. The patient otherwise does not follow with any plastic straightening roll operator and does not have much insight regarding his CKD. In the ED, the patient was found to have blood glucose of 20 mg/dL and received two amps of D50, subsequently admitted to ICU. The patient has been noted to be very hypertensive throughout the day today, was started back on his home medications of carvedilol 25 mg every 12 hours and amlodipine 10 mg daily. Also started on hydralazine 20 mg IV every 6 hours in addition to 25 mg p.o. t.i.d. The patient's main complaint on my encounter was that he is constipated and has not had a bowel movement for two days. The patient is also in agony from lower abdominal pain. On bladder scan, the patient found to have 1800 mL residual and per nursing staff has only been pulling out about 100 mL of urine at a time. Straight cath was performed just now with marked improvement in the patient's lower abdominal/suprapubic discomfort and also with marked improvement in his hypertension. PAST MEDICAL HISTORY: As above, also with AFib history, not on anticoagulation. FAMILY HISTORY: Denies any family history of kidney disease. SOCIAL HISTORY: Previous smoker per chart review. Admits to drinking beer on a daily basis. REVIEW OF SYSTEMS: CONSTITUTIONAL: Denies any anorexia. HEENT: Denies visual difficulty. Denies any difficulty swallowing. CARDIOVASCULAR: Denies any chest pain or palpitations. RESPIRATORY: Denies any dyspnea. GI: Reports some nausea but no vomiting. : Denies any difficulty passing urine. Denies any dysuria. MUSCULOSKELETAL: Denies any back pain or arthralgias. Denies any pain medication use. EXTREMITIES: Reports some swelling in his legs. SKIN: When asked about excoriations on his bilateral lower legs and abdomen, he says that his mother scratched him. Otherwise denies pruritus. NEUROLOGIC: Denies any headache or dizziness. PHYSICAL EXAMINATION: VITAL SIGNS: This afternoon, blood pressure 192/75, heart rate 91, respirations 20, temperature 98.4 this morning, O2 sat 97% on room air. GENERAL: The patient in agony prior to straight cath, otherwise, alert and able to respond to questions appropriately. HEENT: Moist mucous membranes. No cervical lymphadenopathy. RESPIRATORY: Lungs are clear to auscultation bilaterally. No rales, no rhonchi, no wheezes. GASTROINTESTINAL: Abdomen is soft, nondistended. GENITOURINARY: With pronounced suprapubic tenderness, not allowing me to examine and Seaman due to it. EXTREMITIES: 1+ bilateral lower leg edema. SKIN: Excoriations over bilateral lower legs and abdomen. NEUROLOGIC: No asterixis. PSYCHIATRIC: Not agitated. LABORATORY DATA: CBC: WBC 8.9, hemoglobin 11.3, hematocrit 32.7, platelets 271. Chemistry panel: Sodium 135, potassium 3.5, chloride 104, bicarb 17, BUN 64, creatinine 4.5, glucose 302, calcium 8.9. Iron 65, TIBC 299, saturation 22%. Albumin from yesterday 3.7. ProBNP from yesterday 3200. Urine studies not available. Chest x-ray directly visualized, lungs clear. ASSESSMENT AND PLAN: 1. 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 The patient with proteinuric kidney disease per previous studies. most consistent with diabetic kidney disease. The patient already had creatinine clearance of just 10 mL per minute back in 05/2017. Current serum creatinine is relatively only mildly increased from his baseline at that time. The patient has modest metabolic acidosis in the setting of advanced chronic kidney disease. Will need to be on bicarbonate replacement. Also has evidence of chronic kidney disease mineral bone disorder with low normal calcium level. The patient has a history of refusing hemodialysis. The patient counseled at length that he needs close followup as he may need hemodialysis in the coming month to one year. Currently no urgent indication to initiate renal replacement therapy. We will continue to monitor. Recommendations, avoid nephrotoxic agents. We will check parathyroid hormone and vitamin D 25-hydroxy levels. No role for angiotensin-converting enzyme inhibitor/angiotensin receptor antonio at this late stage of chronic kidney disease as it may cause more harm than benefit. 2. Urinary retention. The patient with markedly elevated postvoid residual on bladder scan with relief of retention on straight catheter. Likely has enlarged prostate. We will check bladder ultrasound to look for prostate size as well as check postvoid residual volume. Starting Flomax 0.4 mg daily and tamsulosin 5 mg daily. Checking urinalysis and culture. 3. Hypertensive urgency. Blood pressure elevation worsened by severe discomfort caused by urinary retention. Agree with restarting home medications. Hydralazine also added. We will change it to p.r.n. for systolic blood pressure greater than 150. He will also benefit from small dose of diuretic, starting Lasix 20 mg daily. 4. Congestive heart failure with diastolic dysfunction. The patient has had congestive heart failure exacerbation previously, currently does not appear to be in exacerbation, but does have significant lower extremity edema. Need to avoid overdiuresis with the patient having markedly depressed glomerular filtration rate. We will start gentle diuresis with Lasix 20 mg daily. Thank you for this referral. We will be following up closely. Adama Aguilar MD
[2018-03-04 07:05] LABS: HEMOGLOBIN 9.6 g/dL (12.0-18.0); MEAN CORPUSCULAR HEMOGLOBIN 31.3 pg (27.0-31.0); RBC 3.05 Mil/uL (4.40-5.90); RED CELL DISTRIBUTION WIDTH 14.4 % (11.5-14.5); WHITE BLOOD COUNT 11.5 K/uL (4.8-10.8)
[2018-03-04 07:15] LABS: CALCIUM 8.1 mg/dL (8.4-10.2); URIC ACID 9.1 mg/Dl (3.5-8.5)
[2018-03-04] MEDS ORDERED: Potassium Chloride 20 mEq ER Tab PO ONE (07:42)
[2018-03-04 07:46] LABS: FERRITIN 28.1 ng/Ml (17.9-464)
[2018-03-04] MEDS: POLYETHYLENE GLYCOL 3350 17 GM/Dose PACKET PO SCH (09:16)
--- NOTE | 2018-03-04 09:46 | CP.PCM.PN ---
Subjective - Date & Time of Evaluation Date of Evaluation: 03/04/18 Time of Evaluation: 09:35 - Subjective Subjective: Patient sleeping comfortably this morning and easily arousable. Follows commands. Denies headache, cp, sob. No new complaints. Objective - Vital Signs/Intake and Output Vital Signs (last 24 hours): Temp Pulse Resp BP Pulse Ox 97.9 F 71 20 177/82 H 100 03/04/18 08:23 03/04/18 09:15 03/04/18 08:23 03/04/18 09:15 03/04/18 08:23 Intake and Output: 03/04/18 03/04/18 06:59 18:59 Intake Total 840 Output Total 1000 Balance -160 - Medications Medications: Current Medications Allopurinol (Zyloprim) 100 mg PO DAILY [facility] Amlodipine Besylate (Norvasc) 10 mg PO DAILY [facility] Last Admin: 03/04/18 09:15 Dose: 10 mg Carvedilol (Coreg) 25 mg PO Q12@0000,1200 [facility] Last Admin: 03/04/18 00:03 Dose: 25 mg Dextrose (Dextrose 50% Inj) 0 ml IV STAT PRN; Protocol PRN Reason: Hypoglycemia Protocol Dextrose (Glutose 15) 0 gm PO ONCE PRN; Protocol PRN Reason: Hypoglycemia Protocol Finasteride (Proscar) 5 mg PO DAILY [facility] Last Admin: 03/04/18 09:15 Dose: 5 mg Glucagon (Glucagen Diagnostic Kit) 0 mg IM STAT PRN; Protocol PRN Reason: Hypoglycemia Protocol Heparin Sodium (Porcine) (Heparin) 5,000 units SC Q8 [facility] PRN Reason: Protocol Last Admin: 03/04/18 09:16 Dose: 5,000 units Hydralazine HCl (Apresoline) 20 mg IV Q6 PRN PRN Reason: Systolic Blood Pressure Hydralazine HCl (Apresoline) 25 mg PO TID PRN PRN Reason: Systolic Blood Pressure Pantoprazole Sodium (Protonix Inj) 40 mg IVP DAILY [facility] Last Admin: 03/04/18 09:16 Dose: 40 mg Polyethylene Glycol (Miralax) 17 gm PO DAILY [facility] Last Admin: 03/04/18 09:16 Dose: 17 gm Sodium Bicarbonate (Sodium Bicarbonate Tab) 1,300 mg PO BID [facility] Last Admin: 03/04/18 09:15 Dose: 1,300 mg Tamsulosin HCl (Flomax) 0.4 mg PO DAILY [facility] Last Admin: 03/04/18 09:15 Dose: 0.4 mg - Labs Labs: 03/04/18 04:00 03/04/18 05:47 - Additional Findings Additional findings: Physical exam: Constitutional- cooperative, awake, alert Head- NCAT, PERRL Eye- PERRL, EOMI ENT- normal exam, MMM. Neck- normal inspection, supple, no JVD Respiratory- CTAB, no wheezes rales rhonchi Cardiovascular- RRR, +S1, +S2 no MRG GI/Abdominal- normal bowel sounds, soft, no mass, no hsm Skin- warm, dry Extremities Exam- normal capillary refill, normal inspection Neurological Exam- alert, awake, oriented to person and place. Slight dysarthria but easily comprehensible. Neuro motor strength exam: Left Upper Extremity: 5, Right Upper Extremity: 4, Left Lower Extremity: 5, Right Lower Extremity: 4 Psych- normal mood, normal affect Assessment and Plan - Assessment and Plan (Free Text) Plan: 62 years old male with hx of CVA, CHF, HTN, CKD refusing dialysis in the past, and DM on Glimepiride, brought to the ED with Altered Mental Status, confused, unable to give history. Non verbal and unresponsive in ED. His blood Glucose was 20mg/dl and he received 2 Ampsof D50 (50g). His blood glucose of recheck was only 70g/dl. His blood pressure was also elevated at 187/80mmHg. Pt was initially admitted to ICU for close monitoring of Glucose and BP, then was downgraded to telemetry. 1. DM II with hypoglycemic coma due to Glimepiride in patient with CKD, resolving - Pt received D50 3 amps in the ED - IV Fluid with D10 at 70mls/hr - Accucheck AC+HS - HbA1c - Consistent carbohydrate diet - Blood glucose levels improved and normalized 2. Uncontrolled HTN - Hydralizine 20mg IV Q 6H -Cardio consulted- Dr Espinal -started Coreg and Norvasc -will add Hydralazine PO as BP not yet controlled 3. CKD stage V , worsening ( patient refused Dialysis in the past) - Consult Dr Aguilar dog or animal sitter - Gentle IV fluid rehydration GFR 13-> 12 today - Uric Acid 9.1, will start Allopurinol 4. Hypokalemia probably due to poor intake and the Beta Agonist used - K 3.4 today - repleting po and will recheck tomorrow AM 5. Chronic CHF diastolic Dysfunction. Pro BNP is elevated, although this could be due to the CKD - Consult Dr Tommy Espinal - Repeat ECHO for new EF - Serial Troponin- negative so far - Serial EKG 6. Anemia of Chronic Renal Disease - Hg dropped 11.3 to 9.6 today, however this is likely dilutional given IV fluids - Recheck CBC #. Stress ulcer prophylaxis with Pantoprazole #. DVT Proph with Lovenox #. Code Status: Full
--- NOTE | 2018-03-04 22:28 | CP.PCM.PN ---
Subjective - Date & Time of Evaluation Date of Evaluation: 03/04/18 Time of Evaluation: 17:30 - Subjective Subjective: Patient denies any complaints; tolerating diet; no nausea/vomiting; dumont still in place draining urine; Objective - Vital Signs/Intake and Output Vital Signs (last 24 hours): Temp Pulse Resp BP Pulse Ox 98.0 F 70 16 133/65 98 03/04/18 19:49 03/04/18 20:29 03/04/18 19:49 03/04/18 19:49 03/04/18 19:49 Intake and Output: 03/04/18 03/05/18 18:59 06:59 Intake Total 1500 Output Total 1100 Balance 400 - Medications Medications: Current Medications Allopurinol (Zyloprim) 100 mg PO DAILY [facility] Last Admin: 03/04/18 11:34 Dose: 100 mg Amlodipine Besylate (Norvasc) 10 mg PO DAILY [facility] Last Admin: 03/04/18 09:15 Dose: 10 mg Aspirin (Aspirin Chewable) 81 mg PO DAILY [facility] Carvedilol (Coreg) 25 mg PO Q12@0000,1200 [facility] Last Admin: 03/04/18 11:34 Dose: 25 mg Dextrose (Dextrose 50% Inj) 0 ml IV STAT PRN; Protocol PRN Reason: Hypoglycemia Protocol Dextrose (Glutose 15) 0 gm PO ONCE PRN; Protocol PRN Reason: Hypoglycemia Protocol Finasteride (Proscar) 5 mg PO DAILY [facility] Last Admin: 03/04/18 09:15 Dose: 5 mg Furosemide (Lasix) 40 mg PO DAILY [facility] Last Admin: 03/04/18 14:41 Dose: 40 mg Glucagon (Glucagen Diagnostic Kit) 0 mg IM STAT PRN; Protocol PRN Reason: Hypoglycemia Protocol Heparin Sodium (Porcine) (Heparin) 5,000 units SC Q8 [facility] PRN Reason: Protocol Last Admin: 03/04/18 16:34 Dose: 5,000 units Hydralazine HCl (Apresoline) 20 mg IV Q6 PRN PRN Reason: Systolic Blood Pressure Hydralazine HCl (Apresoline) 25 mg PO TID PRN PRN Reason: Systolic Blood Pressure Pantoprazole Sodium (Protonix Inj) 40 mg IVP DAILY [facility] Last Admin: 03/04/18 09:16 Dose: 40 mg Polyethylene Glycol (Miralax) 17 gm PO DAILY [facility] Last Admin: 03/04/18 09:16 Dose: 17 gm Sodium Bicarbonate (Sodium Bicarbonate Tab) 1,300 mg PO BID [facility] Last Admin: 03/04/18 16:34 Dose: 1,300 mg Tamsulosin HCl (Flomax) 0.4 mg PO DAILY [facility] Last Admin: 03/04/18 09:15 Dose: 0.4 mg - Labs Labs: 03/04/18 04:00 03/04/18 05:47 - Constitutional Appears: Non-toxic, No Acute Distress - Eye Exam Eye Exam: Normal appearance - ENT Exam ENT Exam: Mucous Membranes Moist - Respiratory Exam Respiratory Exam: Clear to Ausculation Bilateral. absent: Respiratory Distress - Cardiovascular Exam Cardiovascular Exam: RRR, +S1, +S2 - GI/Abdominal Exam GI & Abdominal Exam: Soft. absent: Distended, Tenderness - Exam Exam: absent: Bladder Distension - Extremities Exam Additional comments: mild b/l lower leg edema; - Neurological Exam Neurological Exam: Alert, Awake - Psychiatric Exam Psychiatric exam: Normal Mood. absent: Agitated - Skin Skin Exam: absent: Cyanosis, Warm Assessment and Plan (1) CKD (chronic kidney disease), stage V Assessment & Plan: Renal function gradually worsening, creatinine slowly rising during current admission as well; likely secondary to diabetic kidney disease with although with history of multiple CVA's, may also have hypercoaguable state (unknown if workup done previously) which can be contributory; nevertheless, patient is on the verge of requiring dialysis in the very near future; discussed in depth with patient using loan servicing representative service (>20 minutes); given patient's functional disability, HD would be his best option for now; patient is now agreeable for HD (previously refusing per notes from last year at which time he was already CKD IV/V); he is also agreeable for AVF placement with the understanding that it can take several months to be ready for use; -No urgent indication to initiate HD at this time; however, if renal function doesn't stabilize, will initiate HD during this admission; -Consulting vascular surgery for AVF creation (should be done during this admission if possible, is standard of care and prevents future complications from HD catheter); -Avoid nephrotoxic agents; Status: Acute (2) Hypertensive CKD (chronic kidney disease) Assessment & Plan: BP still elevated but better controlled after dumont placed/urinary retention relieved; -continue amlodipine 10 mg daily and coreg 25 mg bid; -lasix 40 mg daily added; Status: Acute (3) Anemia in CKD (chronic kidney disease) Assessment & Plan: Hgb dropping; due to CKD but may also have mild iron deficiency; -starting IV iron 100 mg daily x 5 doses; -will give EPO once BP better controlled; Status: Acute (4) Chronic kidney disease-mineral and bone disorder Assessment & Plan: Awaiting PTH level; will likely need calcitriol; Status: Acute (5) Urinary retention Assessment & Plan: Started on flomax and finasteride yesterday; will give voiding trial today; Status: Acute (6) Hypoglycemia Assessment & Plan: Likely due to worsening renal function and decreased clearance of insulin; monitor; Status: Acute
--- NOTE | 2018-03-04 22:39 | CP.PCM.CON ---
History of Present Illness - History of Present Illness History of Present Illness: Vascular Surgery Consult Re: AVF placement HPI: 62M initially brought to ER 03/03/18 unresponsive and hypoglycemic with a blood sugar of 20 which responded to IV glucose. Pt has a history on CKD with a baseline of ~4.2 in May 2017 and he has refused HD in the past. Pt is reluctant to answer questions so most of his history was gleaned via reviewing EMR, however he did say he was willing to have the AVF placed at this time for possible future use. Pt is right handed. PMH: CHF, HTN, CVA x 3, DMII, Nephrolithiasis, CKD, Hx Afib, not on AC at this time (noncompliant). PSH: Denies SH: Former tobacco use, Social EtOH, no drug use. Ambulates with walker FH: non contributory All: NKDA Meds: Not taking any at this time Review of Systems - Review of Systems All systems: reviewed and no additional remarkable complaints except (as per HPI ) Past Patient History - Infectious Disease Hx of Infectious Diseases: None - Past Medical History & Family History Past Medical History?: Yes - Past Social History Smoking Status: Former Smoker Chewing Tobacco Use: No Cigar Use: No Alcohol: Other Drugs: Denies - CARDIAC Hx Congestive Heart Failure: Yes Hx Hypertension: Yes - PULMONARY Hx Respiratory Disorders: No - NEUROLOGICAL Hx Neurological Disorder: Yes HX Cerebrovascular Accident: Yes - HEENT Hx HEENT Problems: No - RENAL Hx Chronic Kidney Disease: Yes Hx Kidney Stones: Yes - ENDOCRINE/METABOLIC Hx Endocrine Disorders: Yes Hx Diabetes Mellitus Type 2: Yes - HEMATOLOGICAL/ONCOLOGICAL Hx Blood Disorders: No Hx Blood Transfusions: No - INTEGUMENTARY Hx Dermatological Problems: No - MUSCULOSKELETAL/RHEUMATOLOGICAL Hx Musculoskeletal Disorders: No Hx Falls: No - GASTROINTESTINAL Hx Gastrointestinal Disorders: No - GENITOURINARY/GYNECOLOGICAL Hx Genitourinary Disorders: No - PSYCHIATRIC Hx Psychophysiologic Disorder: No Hx Substance Use: No - SURGICAL HISTORY Hx Surgeries: No - ANESTHESIA Hx Anesthesia: No Meds Allergies/Adverse Reactions: Allergies Allergy/AdvReac Type Severity Reaction Status Date / Time No Known Allergies Allergy Verified 06/02/17 09:47 - Medications Medications: Current Medications Allopurinol (Zyloprim) 100 mg PO DAILY [facility] Last Admin: 03/04/18 11:34 Dose: 100 mg Amlodipine Besylate (Norvasc) 10 mg PO DAILY [facility] Last Admin: 03/04/18 09:15 Dose: 10 mg Aspirin (Aspirin Chewable) 81 mg PO DAILY [facility] Carvedilol (Coreg) 25 mg PO Q12@0000,1200 [facility] Last Admin: 03/04/18 11:34 Dose: 25 mg Dextrose (Dextrose 50% Inj) 0 ml IV STAT PRN; Protocol PRN Reason: Hypoglycemia Protocol Dextrose (Glutose 15) 0 gm PO ONCE PRN; Protocol PRN Reason: Hypoglycemia Protocol Finasteride (Proscar) 5 mg PO DAILY [facility] Last Admin: 03/04/18 09:15 Dose: 5 mg Furosemide (Lasix) 40 mg PO DAILY [facility] Last Admin: 03/04/18 14:41 Dose: 40 mg Glucagon (Glucagen Diagnostic Kit) 0 mg IM STAT PRN; Protocol PRN Reason: Hypoglycemia Protocol Heparin Sodium (Porcine) (Heparin) 5,000 units SC Q8 [facility] PRN Reason: Protocol Last Admin: 03/04/18 16:34 Dose: 5,000 units Hydralazine HCl (Apresoline) 20 mg IV Q6 PRN PRN Reason: Systolic Blood Pressure Hydralazine HCl (Apresoline) 25 mg PO TID PRN PRN Reason: Systolic Blood Pressure Pantoprazole Sodium (Protonix Inj) 40 mg IVP DAILY [facility] Last Admin: 03/04/18 09:16 Dose: 40 mg Polyethylene Glycol (Miralax) 17 gm PO DAILY [facility] Last Admin: 03/04/18 09:16 Dose: 17 gm Sodium Bicarbonate (Sodium Bicarbonate Tab) 1,300 mg PO BID [facility] Last Admin: 03/04/18 16:34 Dose: 1,300 mg Tamsulosin HCl (Flomax) 0.4 mg PO DAILY [facility] Last Admin: 03/04/18 09:15 Dose: 0.4 mg Physical Exam - Constitutional Appears: Non-toxic, No Acute Distress - Head Exam Head Exam: ATRAUMATIC, NORMOCEPHALIC - Eye Exam Eye Exam: EOMI. absent: Scleral icterus - ENT Exam ENT Exam: Mucous Membranes Moist Additional comments: No carotid bruit trachea midline - Neck Exam Neck exam: Positive for: Full Rom. Negative for: Tenderness - Respiratory Exam Respiratory Exam: NORMAL BREATHING PATTERN. absent: Respiratory Distress - Cardiovascular Exam Cardiovascular Exam: RRR, +S1, +S2 - GI/Abdominal Exam GI & Abdominal Exam: Soft. absent: Distended, Tenderness - Rectal Exam Rectal Exam: Deferred - Extremities Exam Extremities exam: Positive for: normal capillary refill. Negative for: calf tenderness, pedal edema Additional comments: radial pulses palpable B/L - Back Exam Back exam: absent: CVA tenderness (L), CVA tenderness (R) - Neurological Exam Neurological exam: Alert Additional comments: slurred speech (result of prior CVA) awake - Skin Skin Exam: Dry, Warm Results - Vital Signs Recent Vital Signs: Last Vital Signs Temp 98.0 F 03/04/18 19:49 Pulse 70 03/04/18 20:29 Resp 16 03/04/18 19:49 BP 133/65 03/04/18 19:49 Pulse Ox 98 03/04/18 19:49 - Labs Result Diagrams: 03/04/18 04:00 03/04/18 05:47 Labs: Laboratory Results - last 24 hr 03/03/18 03/04/18 03/04/18 07:35 04:00 05:47 WBC 11.5 H RBC 3.05 L Hgb 9.6 L Hct 29.0 L MCV 95.0 H MCH 31.3 H MCHC 33.0 RDW 14.4 Plt Count 243 Sodium 139 Potassium 3.4 L Chloride 106 Carbon Dioxide 20 L Anion Gap 16 BUN 60 H Creatinine 4.9 H Est GFR ( Amer) 15 Est GFR (Non-Af Amer) 12 Random Glucose 115 H Hemoglobin A1c 5.4 Uric Acid 9.1 H Calcium 8.1 L Ferritin 28.1 25-OH Vitamin D Total Stool Occult Blood 03/04/18 03/04/18 03/04/18 05:47 05:47 18:23 WBC RBC Hgb Hct MCV MCH MCHC RDW Plt Count Sodium Potassium Chloride Carbon Dioxide Anion Gap BUN Creatinine Est GFR ( Amer) Est GFR (Non-Af Amer) Random Glucose Hemoglobin A1c 5.5 Uric Acid Calcium Ferritin 25-OH Vitamin D Total < 12.8 L Stool Occult Blood Negative Assessment & Plan - Assessment and Plan (Free Text) Assessment: 62M with worsening ESRD who may soon require dialysis Plan: Pt is amenable to getting AVF placed at this time. Awaiting UE vein mapping. L arm precautions Will D/W Dr. Danuta Arredondo PGY4
[2018-03-05] MEDS ORDERED: Dextrose 5%/0.45% NS 1,000 ML IV SCH (05:30)
[2018-03-05 05:33] LABS: HEMOGLOBIN 9.1 g/dL (12.0-18.0); MEAN CELL VOLUME 94.3 fl (80.0-94.0); MEAN CORPUSCULAR HEMOGLOBIN 32.2 pg (27.0-31.0); MEAN CORPUSCULAR HGB CONC 34.2 g/dL (33.0-37.0); RBC 2.83 Mil/uL (4.40-5.90); RED CELL DISTRIBUTION WIDTH 14.1 % (11.5-14.5); WHITE BLOOD COUNT 8.1 K/uL (4.8-10.8)
[2018-03-05 05:34] LABS: CALCIUM 7.6 mg/dL (8.4-10.2)
[2018-03-05 05:36] LABS: PROTHROMBIN TIME 11.2 Seconds (9.8-13.1)
[2018-03-05 05:39] LABS: PARTIAL THROMBOPLASTIN TIME 34.3 Seconds (25.6-37.1)
--- NOTE | 2018-03-05 07:33 | CP.PCM.PN ---
Subjective - Date & Time of Evaluation Date of Evaluation: 03/05/18 Time of Evaluation: 07:30 - Subjective Subjective: Vascular Surgery Dr. Tipton Pt S&E @bedside. NAEO. pt has no complaints. denies F/C, N/V. tolerating diet. Objective - Vital Signs/Intake and Output Vital Signs (last 24 hours): Temp Pulse Resp BP Pulse Ox 97.7 F 65 18 148/63 96 03/05/18 05:02 03/05/18 05:02 03/05/18 05:02 03/05/18 05:02 03/05/18 05:02 Intake and Output: 03/05/18 03/05/18 06:59 18:59 Intake Total 900 Output Total 1050 Balance -150 - Medications Medications: Current Medications Allopurinol (Zyloprim) 100 mg PO DAILY [facility] Last Admin: 03/04/18 11:34 Dose: 100 mg Amlodipine Besylate (Norvasc) 10 mg PO DAILY [facility] Last Admin: 03/04/18 09:15 Dose: 10 mg Aspirin (Aspirin Chewable) 81 mg PO DAILY [facility] Carvedilol (Coreg) 25 mg PO Q12@0000,1200 [facility] Last Admin: 03/05/18 00:17 Dose: 25 mg Dextrose (Dextrose 50% Inj) 0 ml IV STAT PRN; Protocol PRN Reason: Hypoglycemia Protocol Dextrose (Glutose 15) 0 gm PO ONCE PRN; Protocol PRN Reason: Hypoglycemia Protocol Finasteride (Proscar) 5 mg PO DAILY [facility] Last Admin: 03/04/18 09:15 Dose: 5 mg Furosemide (Lasix) 40 mg PO DAILY [facility] Last Admin: 03/04/18 14:41 Dose: 40 mg Glucagon (Glucagen Diagnostic Kit) 0 mg IM STAT PRN; Protocol PRN Reason: Hypoglycemia Protocol Heparin Sodium (Porcine) (Heparin) 5,000 units SC Q8 JENIFFER PRN Reason: Protocol Last Admin: 03/05/18 00:17 Dose: 5,000 units Hydralazine HCl (Apresoline) 20 mg IV Q6 PRN PRN Reason: Systolic Blood Pressure Hydralazine HCl (Apresoline) 25 mg PO TID PRN PRN Reason: Systolic Blood Pressure Dextrose/Sodium Chloride (Dextrose 5%/0.45% Ns 1000 Ml) 1,000 mls @ 50 mls/hr IV .Q20H [facility] Stop: 03/06/18 05:20 Pantoprazole Sodium (Protonix Inj) 40 mg IVP DAILY [facility] Last Admin: 03/04/18 09:16 Dose: 40 mg Polyethylene Glycol (Miralax) 17 gm PO DAILY [facility] Last Admin: 03/04/18 09:16 Dose: 17 gm Sodium Bicarbonate (Sodium Bicarbonate Tab) 1,300 mg PO BID [facility] Last Admin: 03/04/18 16:34 Dose: 1,300 mg Tamsulosin HCl (Flomax) 0.4 mg PO DAILY [facility] Last Admin: 03/04/18 09:15 Dose: 0.4 mg - Labs Labs: 03/05/18 04:20 03/05/18 04:20 PT 11.2 Seconds (9.8-13.1) 03/05/18 04:20 INR 1.0 03/05/18 04:20 APTT 34.3 Seconds (25.6-37.1) 03/05/18 04:20 - Constitutional Appears: Non-toxic, No Acute Distress - Head Exam Head Exam: NORMAL INSPECTION - Eye Exam Eye Exam: Normal appearance - ENT Exam ENT Exam: Mucous Membranes Moist - Respiratory Exam Respiratory Exam: NORMAL BREATHING PATTERN. absent: Accessory Muscle Use, Respiratory Distress - Cardiovascular Exam Cardiovascular Exam: REGULAR RHYTHM. absent: Bradycardia, Tachycardia - GI/Abdominal Exam GI & Abdominal Exam: Soft. absent: Distended, Tenderness - Extremities Exam Extremities Exam: Normal Inspection Additional comments: Left arm restriction in place - Neurological Exam Neurological Exam: Alert, Awake - Psychiatric Exam Psychiatric exam: Normal Affect, Normal Mood - Skin Skin Exam: Dry, Intact, Normal Color, Warm Assessment and Plan - Assessment and Plan (Free Text) Assessment: 62 y/o M w/ ESRD not yet requiring HD. Surgery consulted for AVF creation - f/u vein mapping - f/u Nephro recs - cont medical management - optimize for surgery - GI/DVT PPx - encourage OOB to chair/Amb Further recs per Dr. Danuta Benavides DO PGY3
[2018-03-05] MEDS: POLYETHYLENE GLYCOL 3350 17 GM/Dose PACKET PO SCH (08:25)
--- NOTE | 2018-03-05 11:32 | CP.PCM.PN ---
Subjective - Date & Time of Evaluation Date of Evaluation: 03/05/18 Time of Evaluation: 10:00 - Subjective Subjective: Glucose controlled, no further Hypoglycemia no CP no SOB denies abd pain Discussed plan for poss Hemodialysis if Renal fxn worsens - pt now agreeable Objective - Vital Signs/Intake and Output Vital Signs (last 24 hours): Temp Pulse Resp BP Pulse Ox 97.4 F L 72 20 179/86 H 98 03/05/18 08:00 03/05/18 09:00 03/05/18 08:00 03/05/18 08:25 03/05/18 08:00 Intake and Output: 03/05/18 03/05/18 06:59 18:59 Intake Total 900 Output Total 1050 Balance -150 - Medications Medications: Current Medications Allopurinol (Zyloprim) 100 mg PO DAILY [facility] Last Admin: 03/05/18 08:25 Dose: 100 mg Amlodipine Besylate (Norvasc) 10 mg PO DAILY [facility] Last Admin: 03/05/18 08:25 Dose: 10 mg Aspirin (Aspirin Chewable) 81 mg PO DAILY [facility] Last Admin: 03/05/18 08:24 Dose: 81 mg Carvedilol (Coreg) 25 mg PO Q12@0000,1200 [facility] Last Admin: 03/05/18 00:17 Dose: 25 mg Dextrose (Dextrose 50% Inj) 0 ml IV STAT PRN; Protocol PRN Reason: Hypoglycemia Protocol Dextrose (Glutose 15) 0 gm PO ONCE PRN; Protocol PRN Reason: Hypoglycemia Protocol Finasteride (Proscar) 5 mg PO DAILY [facility] Last Admin: 03/05/18 08:26 Dose: 5 mg Furosemide (Lasix) 40 mg PO DAILY [facility] Last Admin: 03/05/18 08:24 Dose: 40 mg Glucagon (Glucagen Diagnostic Kit) 0 mg IM STAT PRN; Protocol PRN Reason: Hypoglycemia Protocol Heparin Sodium (Porcine) (Heparin) 5,000 units SC Q8 JENIFFER PRN Reason: Protocol Last Admin: 03/05/18 08:24 Dose: 5,000 units Hydralazine HCl (Apresoline) 20 mg IV Q6 PRN PRN Reason: Systolic Blood Pressure Hydralazine HCl (Apresoline) 25 mg PO TID PRN PRN Reason: Systolic Blood Pressure Dextrose/Sodium Chloride (Dextrose 5%/0.45% Ns 1000 Ml) 1,000 mls @ 50 mls/hr IV .Q20H [facility] Stop: 03/06/18 05:20 Pantoprazole Sodium (Protonix Inj) 40 mg IVP DAILY [facility] Last Admin: 03/05/18 08:21 Dose: 40 mg Polyethylene Glycol (Miralax) 17 gm PO DAILY [facility] Last Admin: 03/05/18 08:25 Dose: 17 gm Sodium Bicarbonate (Sodium Bicarbonate Tab) 1,300 mg PO BID [facility] Last Admin: 03/05/18 08:21 Dose: 1,300 mg Tamsulosin HCl (Flomax) 0.4 mg PO DAILY [facility] Last Admin: 03/05/18 08:26 Dose: 0.4 mg - Labs Labs: 03/05/18 04:20 03/05/18 04:20 PT 11.2 Seconds (9.8-13.1) 03/05/18 04:20 INR 1.0 03/05/18 04:20 APTT 34.3 Seconds (25.6-37.1) 03/05/18 04:20 - Constitutional Appears: Non-toxic, Older Than Stated Age, Chronically Ill - Head Exam Head Exam: NORMAL INSPECTION, NORMOCEPHALIC - Eye Exam Eye Exam: EOMI, Normal appearance Pupil Exam: NORMAL ACCOMODATION - ENT Exam ENT Exam: Mucous Membranes Moist, Normal External Ear Exam - Neck Exam Neck Exam: Full ROM. absent: Meningismus - Respiratory Exam Respiratory Exam: NORMAL BREATHING PATTERN. absent: Respiratory Distress - Cardiovascular Exam Cardiovascular Exam: REGULAR RHYTHM, +S1, +S2 - GI/Abdominal Exam GI & Abdominal Exam: Soft, Normal Bowel Sounds. absent: Tenderness - Extremities Exam Extremities Exam: Normal Capillary Refill. absent: Calf Tenderness, Pedal Edema - Back Exam Back Exam: absent: CVA tenderness (L), CVA tenderness (R) - Neurological Exam Neurological Exam: Alert, Awake Neuro motor strength exam: Left Upper Extremity: 5, Right Upper Extremity: 4, Left Lower Extremity: 5, Right Lower Extremity: 4 Additional comments: oriented to person and place slight dysarthria but comprehensible ( pt states old from previous CVA) - Psychiatric Exam Psychiatric exam: Normal Affect, Normal Mood - Skin Skin Exam: Dry, Normal Color, Warm Assessment and Plan - Assessment and Plan (Free Text) Assessment: 62 years old male with hx of CVA, CHF, HTN, CKD refusing dialysis in the past, and DM on Glimepiride, brought to the ED with Altered Mental Status, confused, unable to give history. Non verbal and unresponsive in ED. His blood Glucose was 20mg/dl and he received 2 Amps of D50 (50g). His blood glucose on recheck was only 70g/dl. His blood pressure was also elevated at 187/80mmHg. Pt was initially admitted to ICU for close monitoring of Glucose and BP, then was downgraded to telemetry. 1. DM II with hypoglycemic coma due to Glimepiride in patient with CKD, resolved - Pt received D50 3 amps in the ED - also given IV Fluid with D10 - now d/c - Accucheck AC+HS - HbA1c 5.5 - Consistent carbohydrate diet - Blood glucose levels improved and normalized 2. Uncontrolled HTN - Hydralazine 20mg IV Q 6H prn -Cardio consulted- Dr Espinal -cont Coreg, Norvasc and Hydralazine PO 3. CKD stage V , worsening ( patient refused Dialysis in the past) - Consulted Dr Aguilar basketball commentator - Gentle IV fluid rehydration - discussed plan with Dr Aguilar - rec AV Fistula placement and if Crea does not improve , he rec starting Hemodialysis - Uric Acid 9.1 - cont Allopurinol - Vascular Surgery consulted 4. Hypokalemia probably due to poor intake and the Beta Agonist used - replete 5. Chronic CHF diastolic Dysfunction. Pro BNP is elevated, although this could be due to the CKD - Consult Dr Tommy Espinal - Repeat ECHO for new EF - Serial Troponin- negative so far - Serial EKG 6. Anemia of Chronic Renal Disease - Hg dropped 11.3 to 9.1 today, however this is likely dilutional given IV fluids - Monitor CBC 7. 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 Stress ulcer prophylaxis with Pantoprazole #. DVT Proph with Lovenox #. Code Status: Full
--- NOTE | 2018-03-05 11:48 | PQF ---
PROVIDER RESPONSE TEXT: History of CVA with some residual right hemiparesis and dysarthria REVIEWER QUERY TEXT: Symptom Underlying Cause Please document the underlying diagnosis causing the patient?s documented symptom(s) of " right weak ness from previous CVA" or whether those are insignificant or unable to be further specified. The patient's Clinical Indicators include: PN : "States that his slurred speech and sl right weakness is old from previous CVA, walks with a can e." LUE: 5, RUE: 4 LLE :5, RLE: 4 Query created by: Fior Cunningham on 03/05/2018 10:00 AM Electronically signed by: Keerthi Guerrero MD 03/05/2018 11:45 AM
[2018-03-05] MEDS ORDERED: Ergocalciferol 50,000 Intl Units Cap PO SCH (12:45)
--- NOTE | 2018-03-05 23:42 | CP.PCM.PN ---
Subjective - Date & Time of Evaluation Date of Evaluation: 03/05/18 Time of Evaluation: 13:00 - Subjective Subjective: Ambulating to bathroom, denies sob, nausea/vomiting; toelrating diet; Objective - Vital Signs/Intake and Output Vital Signs (last 24 hours): Temp Pulse Resp BP Pulse Ox 98.4 F 66 22 172/80 H 98 03/05/18 20:00 03/05/18 21:00 03/05/18 20:00 03/05/18 20:00 03/05/18 20:00 - Medications Medications: Current Medications Allopurinol (Zyloprim) 100 mg PO DAILY [facility] Last Admin: 03/05/18 08:25 Dose: 100 mg Amlodipine Besylate (Norvasc) 10 mg PO DAILY [facility] Last Admin: 03/05/18 08:25 Dose: 10 mg Aspirin (Aspirin Chewable) 81 mg PO DAILY [facility] Last Admin: 03/05/18 08:24 Dose: 81 mg Carvedilol (Coreg) 25 mg PO Q12@0000,1200 [facility] Last Admin: 03/05/18 12:20 Dose: 25 mg Dextrose (Dextrose 50% Inj) 0 ml IV STAT PRN; Protocol PRN Reason: Hypoglycemia Protocol Dextrose (Glutose 15) 0 gm PO ONCE PRN; Protocol PRN Reason: Hypoglycemia Protocol Ergocalciferol (Drisdol 50,000 Intl Units Cap) 1 cap PO Q7D [facility] Last Admin: 03/05/18 16:12 Dose: 1 cap Finasteride (Proscar) 5 mg PO DAILY [facility] Last Admin: 03/05/18 08:26 Dose: 5 mg Furosemide (Lasix) 40 mg PO DAILY [facility] Last Admin: 03/05/18 08:24 Dose: 40 mg Glucagon (Glucagen Diagnostic Kit) 0 mg IM STAT PRN; Protocol PRN Reason: Hypoglycemia Protocol Heparin Sodium (Porcine) (Heparin) 5,000 units SC Q8 JENIFFER PRN Reason: Protocol Last Admin: 03/05/18 16:13 Dose: 5,000 units Hydralazine HCl (Apresoline) 20 mg IV Q6 PRN PRN Reason: Systolic Blood Pressure Hydralazine HCl (Apresoline) 25 mg PO TID PRN PRN Reason: Systolic Blood Pressure Pantoprazole Sodium (Protonix Inj) 40 mg IVP DAILY [facility] Last Admin: 03/05/18 08:21 Dose: 40 mg Polyethylene Glycol (Miralax) 17 gm PO DAILY [facility] Last Admin: 03/05/18 08:25 Dose: 17 gm Sodium Bicarbonate (Sodium Bicarbonate Tab) 1,300 mg PO BID [facility] Last Admin: 03/05/18 16:13 Dose: 1,300 mg Tamsulosin HCl (Flomax) 0.4 mg PO DAILY [facility] Last Admin: 03/05/18 08:26 Dose: 0.4 mg - Labs Labs: 03/05/18 04:20 03/05/18 04:20 PT 11.2 Seconds (9.8-13.1) 03/05/18 04:20 INR 1.0 03/05/18 04:20 APTT 34.3 Seconds (25.6-37.1) 03/05/18 04:20 - Constitutional Appears: No Acute Distress Assessment and Plan (1) CKD (chronic kidney disease), stage V Assessment & Plan: Renal function continues to worsen; no urgent indication to initiate HD, however , with very low GFR, we risk having patient being decompensating especially with questionable f/u; patient agreeable to initiate HD while here; will decide based on labs tomorrow; -f/u with vascular surgery for AVF creation (should ideally be done before d/c); -continue to avoid nephrotoxic agents; Status: Acute (2) Urinary retention Assessment & Plan: Failed voiding trial; dumont re-inserted; will continue flomax and finasteride; should increase flomax dose to 0.8 mg daily in a few days; may need to be discharged with dumont leg bag with urology f/u; Status: Acute (3) Hypertensive CKD (chronic kidney disease) Assessment & Plan: BP control fluctuating, possibly due to urinary retention; continue current meds including PO lasix 40 mg daily; Status: Acute (4) Anemia in CKD (chronic kidney disease) Status: Acute (5) Chronic kidney disease-mineral and bone disorder Status: Acute (6) Hypoglycemia Status: Acute
--- NOTE | 2018-03-06 07:34 | CP.PCM.PN ---
Subjective - Date & Time of Evaluation Date of Evaluation: 03/06/18 Time of Evaluation: 07:33 - Subjective Subjective: Vascular surgery progress note for Dr. Bette Gilliam, PGY-2 Pt S & E at bedside at 0700 Pt without complaints. Tolerating diet. Informed that surgery was scheduled for tomorrow. Pt refusing surgery. Informed him that his kidney function is worsening and he will need a dialysis access at some point in the future. Pt continues to refuse surgical intervention. Objective - Vital Signs/Intake and Output Vital Signs (last 24 hours): Temp Pulse Resp BP Pulse Ox 97.6 F 55 L 18 163/75 H 98 03/06/18 05:02 03/06/18 05:02 03/06/18 05:02 03/06/18 05:02 03/06/18 05:02 - Medications Medications: Current Medications Allopurinol (Zyloprim) 100 mg PO DAILY [facility] Last Admin: 03/05/18 08:25 Dose: 100 mg Amlodipine Besylate (Norvasc) 10 mg PO DAILY [facility] Last Admin: 03/05/18 08:25 Dose: 10 mg Aspirin (Aspirin Chewable) 81 mg PO DAILY [facility] Last Admin: 03/05/18 08:24 Dose: 81 mg Carvedilol (Coreg) 25 mg PO Q12@0000,1200 [facility] Last Admin: 03/06/18 00:46 Dose: 25 mg Dextrose (Dextrose 50% Inj) 0 ml IV STAT PRN; Protocol PRN Reason: Hypoglycemia Protocol Dextrose (Glutose 15) 0 gm PO ONCE PRN; Protocol PRN Reason: Hypoglycemia Protocol Ergocalciferol (Drisdol 50,000 Intl Units Cap) 1 cap PO Q7D [facility] Last Admin: 03/05/18 16:12 Dose: 1 cap Finasteride (Proscar) 5 mg PO DAILY [facility] Last Admin: 03/05/18 08:26 Dose: 5 mg Furosemide (Lasix) 40 mg PO DAILY [facility] Last Admin: 03/05/18 08:24 Dose: 40 mg Glucagon (Glucagen Diagnostic Kit) 0 mg IM STAT PRN; Protocol PRN Reason: Hypoglycemia Protocol Heparin Sodium (Porcine) (Heparin) 5,000 units SC Q8 JENIFFER PRN Reason: Protocol Last Admin: 03/06/18 00:54 Dose: Not Given Hydralazine HCl (Apresoline) 20 mg IV Q6 PRN PRN Reason: Systolic Blood Pressure Hydralazine HCl (Apresoline) 25 mg PO Q8H [facility] Pantoprazole Sodium (Protonix Inj) 40 mg IVP DAILY [facility] Last Admin: 03/05/18 08:21 Dose: 40 mg Polyethylene Glycol (Miralax) 17 gm PO DAILY [facility] Last Admin: 03/05/18 08:25 Dose: 17 gm Sodium Bicarbonate (Sodium Bicarbonate Tab) 1,300 mg PO BID [facility] Last Admin: 03/05/18 16:13 Dose: 1,300 mg Tamsulosin HCl (Flomax) 0.4 mg PO DAILY [facility] Last Admin: 03/05/18 08:26 Dose: 0.4 mg - Labs Labs: 03/05/18 04:20 03/05/18 04:20 PT 11.2 Seconds (9.8-13.1) 03/05/18 04:20 INR 1.0 03/05/18 04:20 APTT 34.3 Seconds (25.6-37.1) 03/05/18 04:20 - Constitutional Appears: Non-toxic, No Acute Distress - Head Exam Head Exam: ATRAUMATIC, NORMAL INSPECTION, NORMOCEPHALIC - Eye Exam Eye Exam: EOMI, Normal appearance - ENT Exam ENT Exam: Mucous Membranes Moist, Normal Exam - Neck Exam Neck Exam: Full ROM, Normal Inspection - Respiratory Exam Respiratory Exam: NORMAL BREATHING PATTERN - Cardiovascular Exam Cardiovascular Exam: REGULAR RHYTHM, +S1, +S2 - GI/Abdominal Exam GI & Abdominal Exam: Soft. absent: Tenderness - Extremities Exam Extremities Exam: Normal Inspection - Neurological Exam Neurological Exam: Alert, Awake, CN II-XII Intact, Oriented x3 - Psychiatric Exam Psychiatric exam: Normal Affect, Normal Mood - Skin Skin Exam: Dry, Intact, Normal Color, Warm Assessment and Plan - Assessment and Plan (Free Text) Assessment: 62 y/o M w/ ESRD not yet requiring HD. Surgery consulted for AVF creation Plan: Cont medical mgmt Pt refusing surgery No surgical intervention at this time Please re-consult if pt changes his mind Will DW attending Tawana, PGY-2
[2018-03-06 08:11] VITALS: RESP 20
[2018-03-06] MEDS: POLYETHYLENE GLYCOL 3350 17 GM/Dose PACKET PO SCH (09:21)
--- NOTE | 2018-03-06 12:43 | US ---
Date of service: 03/05/2018 PROCEDURE: For urinary bladder ultrasound HISTORY: check post void residual volume and prostate size COMPARISON: None TECHNIQUE: Standard protocol for this study/examination. FINDINGS: Urinary bladder assessment: Prevoid volume: 532.4 ml Postvoid residual: Setting. The patient was unable to void. Intrinsic, mural, perivesical abnormalities: None Ureteral jets: Documented bilaterally IMPRESSION: Prevoid volume 532.4 mL. Patient was unable to void on command.
--- NOTE | 2018-03-06 12:55 | US ---
Date of service: 03/05/2018 PROCEDURE: Upper Extremity Venous Duplex Exam HISTORY: needs AVF creation for HD PRIORS: None. TECHNIQUE: Bilateral upper extremity, internal jugular, subclavian, axillary, brachial, ulnar, radial, basilic and upper cephalic veins were evaluated. Flow was assessed with color Doppler, compressibility, assessment of phasic flow and augmentation response. Report prepared by distribution engineering technologist. FINDINGS: RIGHT: 1. Internal Jugular Vein: Compressibility - Fully compressible: Thrombus - None : Flow - Phasic 2. Subclavian Vein:Compressibility - Fully compressible: Thrombus - None : Flow - Phasic 3. Axillary Vein: Compressibility - Fully compressible: Thrombus - None 4. Brachial Vein: Compressibility - Fully compressible: Thrombus - None 5. Ulnar Vein:Compressibility - Fully compressible: Thrombus - None 6. Radial Vein:Compressibility - Fully compressible: Thrombus - None 7. Cephalic Vein: Compressibility - Fully compressible: thrombus - None 7.1. Proximal Diameter: 0.18cm. Mid Diameter:0.24cm. Distal Diameter: 0.28cm 8. Basilic Vein:Compressibility - Fully compressible: thrombus - None 8.1. Proximal Diameter: 0.53cm. Mid Diameter:0.27cm. Distal Diameter: 0.38cm. LEFT: 1. Internal Jugular Vein: Compressibility - Fully compressible: Thrombus - None : Flow - Phasic 2. Subclavian Vein:Compressibility - Fully compressible: Thrombus - None : Flow - Phasic 3. Axillary Vein: Compressibility - Fully compressible: Thrombus - None 4. Brachial Vein: Compressibility - Fully compressible: Thrombus - None 5. Ulnar Vein:Compressibility - Fully compressible: Thrombus - None 6. Radial Vein:Compressibility - Fully compressible: Thrombus - None 7. Cephalic Vein: Not visualized. 8. Basilic Vein:Compressibility - Fully compressible: thrombus - None 8.1. : Proximal Diameter: 0.34cm. Mid Diameter:0.42cm. Distal Diameter: 0.37cm. OTHER FINDINGS: Right: None. Left: None. IMPRESSION: Right: Diameter measurements of the right cephalic vein is measured between 0.18 cm and 0.28 cm and basilic vein is measured between 0.27 cm and 0.53 cm. Left: Diameter of the basilic vein is measured between 0.34cm and 0.42cm. Limitations of the current examination: Nonvisualized left cephalic vein.
--- NOTE | 2018-03-06 12:57 | CP.PCM.DIS ---
Provider - Provider Date of Admission: 03/02/18 22:37 Attending physician: Aries Donaldson Primary care physician: Dr Lagos Consults: Nephro: Dr Aguilar Time Spent in preparation of Discharge (in minutes): 40 Diagnosis - Discharge Diagnosis (1) Hypoglycemia Status: Acute (2) CKD (chronic kidney disease), stage V Status: Acute (3) Anemia in CKD (chronic kidney disease) Status: Chronic (4) CHF (congestive heart failure) Status: Chronic (5) Uncontrolled hypertension Status: Acute (6) Urinary retention Status: Acute Hospital Course - Lab Results Lab Results: Micro Results 03/02/18 21:00 Blood-Venous Blood Culture - Preliminary NO GROWTH AFTER 3 DAYS 03/02/18 20:45 Blood-Venous Blood Culture - Preliminary NO GROWTH AFTER 3 DAYS 03/03/18 17:20 Urine,Catheterized Urine Culture - Final 10-50,000 CFU/ML. MULTIPLE SPECIES. PROBABLE CONTAMINATION. 03/03/18 18:34 Naris MRSA Culture (Admit) - Final MRSA NOT DETECTED 03/03/18 06:37 Naris MRSA Culture (Admit) - Final MRSA NOT DETECTED Most Recent Lab Values WBC 8.1 K/uL (4.8-10.8) 03/05/18 04:20 RBC 2.83 Mil/uL (4.40-5.90) L 03/05/18 04:20 Hgb 9.1 g/dL (12.0-18.0) L 03/05/18 04:20 Hct 26.7 % (35.0-51.0) L 03/05/18 04:20 MCV 94.3 fl (80.0-94.0) H 03/05/18 04:20 MCH 32.2 pg (27.0-31.0) H 03/05/18 04:20 MCHC 34.2 g/dL (33.0-37.0) 03/05/18 04:20 RDW 14.1 % (11.5-14.5) 03/05/18 04:20 Plt Count 224 K/uL (130-400) 03/05/18 04:20 MPV 7.3 fl (7.2-11.7) 03/02/18 20:53 Neut % (Auto) 82.6 % (50.0-75.0) H 03/02/18 20:53 Lymph % (Auto) 6.7 % (20.0-40.0) L 03/02/18 20:53 [place] % (Auto) 8.4 % (0.0-10.0) 03/02/18 20:53 Eos % (Auto) 1.7 % (0.0-4.0) 03/02/18 20:53 Baso % (Auto) 0.6 % (0.0-2.0) 03/02/18 20:53 Neut # (Auto) 8.9 K/uL (1.8-7.0) H 03/02/18 20:53 Lymph # (Auto) 0.7 K/uL (1.0-4.3) L 03/02/18 20:53 [place] # (Auto) 0.9 K/uL (0.0-0.8) H 03/02/18 20:53 Eos # (Auto) 0.2 K/uL (0.0-0.7) 03/02/18 20:53 Baso # (Auto) 0.1 K/uL (0.0-0.2) 03/02/18 20:53 Neutrophils % (Manual) 76 % (42-75) H 03/02/18 20:53 Band Neutrophils % 3 % (0-2) H 03/02/18 20:53 Lymphocytes % (Manual) 10 % (20-50) L 03/02/18 20:53 Monocytes % (Manual) 8 % (0-10) 03/02/18 20:53 Eosinophils % (Manual) 2 % (0-7) 03/02/18 20:53 Basophils % (Manual) 1 % (0-2) 03/02/18 20:53 Toxic Granulation Present 03/02/18 20:53 Platelet Estimate Normal (NORMAL) 03/02/18 20:53 Polychromasia Slight 03/02/18 20:53 Hypochromasia (manual) Slight 03/02/18 20:53 Anisocytosis (manual) Moderate 03/02/18 20:53 PT 11.2 Seconds (9.8-13.1) 03/05/18 04:20 INR 1.0 03/05/18 04:20 APTT 34.3 Seconds (25.6-37.1) 03/05/18 04:20 pCO2 33 mm/Hg (35-45) L 03/02/18 21:03 pO2 89 mm/Hg (80-100) 03/02/18 21:03 HCO3 19.3 mmol/L (21-28) L 03/02/18 21:03 ABG pH 7.34 (7.35-7.45) L 03/02/18 21:03 ABG Total CO2 18.8 mmol/L (22-28) L 03/02/18 21:03 ABG O2 Saturation 98.8 % (95-98) H 03/02/18 21:03 ABG O2 Content 13.7 ML/dL (15-23) L 03/02/18 21:03 ABG Base Excess -7.2 mmol/L (-2.0-3.0) L 03/02/18 21: ABG Hemoglobin 10.1 g/dL (11.7-17.4) L 03/02/18 21:03 ABG Carboxyhemoglobin 0.8 % (0.5-1.5) 03/02/18 21:03 POC ABG HHb (Measured) 1.2 % (0.0-5.0) 03/02/18 21:03 ABG Methemoglobin 2.6 % (0.0-3.0) 03/02/18 21:03 ABG O2 Capacity 13.9 mL/dL (16-24) L 03/02/18 21:03 [place] Test Yes 03/02/18 21:03 VBG pH 7.25 (7.32-7.43) L 03/02/18 20:56 VBG pCO2 43 mmHg (40-60) 03/02/18 20:56 VBG HCO3 17.1 mmol/L 03/02/18 20:56 VBG Total CO2 20.2 mmol/L (22-28) L 03/02/18 20:56 VBG O2 Sat (Calc) 66.3 % (40-65) H 03/02/18 20:56 VBG Base Excess -8.1 mmol/L (0.0-2.0) L 03/02/18 20:56 VBG Potassium 2.9 mmol/L (3.6-5.2) L 03/02/18 20:56 A-a O2 Difference 19.0 mm/Hg 03/02/18 21:03 Hgb O2 Saturation 95.4 % (95.0-98.0) 03/02/18 21:03 Sodium 135.0 mmol/L (132-148) 03/02/18 20:56 Chloride 103.0 mmol/L (98-107) 03/02/18 20:56 Glucose 335 mg/dL (75-110) H 03/02/18 20:56 Lactate 1.1 mmol/L (0.7-2.1) 03/02/18 20:56 Vent Mode Room air 03/02/18 21:03 FiO2 21.0 % 03/02/18 21:03 Sodium 141 mmol/l (132-148) 03/05/18 04:20 Potassium 3.5 MMOL/L (3.6-5.0) L 03/05/18 04:20 Chloride 107 mmol/L (98-107) 03/05/18 04:20 Carbon Dioxide 20 mmol/L (22-30) L 03/05/18 04:20 Anion Gap 18 (10-20) 03/05/18 04:20 BUN 65 mg/dl (9-20) H 03/05/18 04:20 Creatinine 5.1 mg/dl (0.8-1.5) H 03/05/18 04:20 Est GFR ( Amer) 14 03/05/18 04:20 Est GFR (Non-Af Amer) 12 03/05/18 04:20 POC Glucose (mg/dL) 90 mg/dL (65-110) 03/06/18 05:37 Random Glucose 104 mg/dL (75-110) 03/05/18 04:20 Hemoglobin A1c 5.5 % (4.2-6.5) 03/04/18 05:47 Uric Acid 9.1 mg/Dl (3.5-8.5) H 03/04/18 05:47 Calcium 7.6 mg/dL (8.4-10.2) L 03/05/18 04:20 Iron 65 ug/dL (49-181) 03/03/18 07:35 TIBC 299 ug/dL (250-450) 03/03/18 07:35 % Saturation 22 % (20-55) 03/03/18 07:35 Ferritin 28.1 ng/Ml (17.9-464) 03/04/18 05:47 Total Bilirubin 0.4 mg/dl (0.2-1.3) 03/02/18 20:53 AST 17 U/L (17-59) D 03/02/18 20:53 ALT 21 U/L (21-72) 03/02/18 20:53 Alkaline Phosphatase 99 U/L (38-126) 03/02/18 20:53 Ammonia 13 umo/L (16-60) L 03/02/18 20:45 Troponin I 0.0380 ng/mL (0.00-0.120) 03/03/18 10:00 NT-Pro-B Natriuret Pep 3200 pg/ml (0-900) H 03/02/18 20:53 Total Protein 6.8 G/DL (6.3-8.2) 03/02/18 20:53 Total Protein (PEP) 5.6 g/dL (6.1-8.1) L 03/05/18 04:20 Albumin 3.7 g/dL (3.5-5.0) 03/02/18 20:53 Globulin 3.0 gm/dL (2.2-3.9) 03/02/18 20:53 Albumin/Globulin Ratio 1.2 (1.0-2.1) 03/02/18 20:53 Lipase 267 U/L (23-300) 03/02/18 20:53 Vitamin B12 659 pg/mL (239-931) 03/03/18 07:35 25-OH Vitamin D Total < 12.8 NG/ML (30.0-100.0) L 03/04/18 05:47 Folate 11.9 ng/mL 03/03/18 07:35 PTH Intact Whole [place] 1094 pg/mL (14-64) H 03/04/18 05:47 Venous Blood Potassium 2.9 mmol/L (3.6-5.2) L 03/02/18 20:56 Urine Color Straw (YELLOW) 03/03/18 17:20 Urine Clarity Clear (Clear) 03/03/18 17:20 Urine pH 6.0 (5.0-8.0) 03/03/18 17:20 Ur Specific [place] 1.008 (1.003-1.030) 03/03/18 17:20 Urine Protein 100 mg/dL (NEGATIVE) 03/03/18 17:20 Urine Glucose (UA) >=500 mg/dL (Normal) 03/03/18 17:20 Urine Ketones Negative mg/dL (NEGATIVE) 03/03/18 17:20 Urine Blood Negative (NEGATIVE) 03/03/18 17:20 Urine Nitrate Negative (NEGATIVE) 03/03/18 17:20 Urine Bilirubin Negative (NEGATIVE) 03/03/18 17:20 Urine Urobilinogen 0.2-1.0 mg/dL (0.2-1.0) 03/03/18 17:20 Ur Leukocyte Esterase Neg [place]/uL (Negative) 03/03/18 17:20 Urine RBC (Auto) 1 /hpf (0-3) 03/03/18 17:20 Urine Bacteria Rare (<OCC) 03/03/18 17:20 U Random Total Protein 3848 mg/g creat (22-128) H 03/03/18 17:20 Urine Creatinine 43 mg/dL (20-370) 03/03/18 18:00 Urine Microalbumin 71.9 mg/dL 03/03/18 18:00 Microalb/Creat Ratio 1679 (<30) H 03/03/18 18:00 Stool Occult Blood Negative (NEGATIVE) 03/04/18 18:23 Urine Opiates Screen Negative (NEGATIVE) 03/02/18 22:06 Urine Methadone Screen Negative (NEGATIVE) 03/02/18 22:06 Ur Barbiturates Screen Negative (NEGATIVE) 03/02/18 22:06 Ur Phencyclidine Scrn Negative (NEGATIVE) 03/02/18 22:06 Ur Amphetamines Screen Negative (NEGATIVE) 03/02/18 22:06 U Benzodiazepines Scrn Negative (NEGATIVE) 03/02/18 22:06 U Oth Cocaine Metabols Negative (NEGATIVE) 03/02/18 22:06 U Cannabinoids Screen Negative (NEGATIVE) 03/02/18 22:06 Alcohol, Quantitative < 10 mg/dl (0-10) 03/02/18 20:53 RPR Nonreactive (NONREACTIVE) 03/05/18 04:20 HIV 1&2 Antibody Screen Negative (NEGATIVE) 03/05/18 04:20 - Hospital Course Hospital Course: 62 years old male with hx of CVA, CHF, HTN, CKD refusing dialysis in the past, and DM on Glimepiride, brought to the ED with Altered Mental Status, confused, unable to give history. Non verbal and unresponsive in ED. His blood Glucose was 20mg/dl and he received 2 Amps of D50 (50g). His blood glucose on recheck was only 70g/dl. His blood pressure was also elevated at 187/80mmHg. Pt was initially admitted to ICU for close monitoring of Glucose and BP, then was downgraded to telemetry. His Creatinine was also noted to be worsening. Nephrology consulted- plan was to start process to get pt an AVF for future HD however pt refused AVF placement and also refused Hemodialysis . He has also refused further Lab works. Pt signed against medical advice. 1. DM II with hypoglycemic coma due to Glimepiride in patient with CKD, resolved - Pt received D50 3 amps in the ED - also given IV Fluid with D10 - Accucheck AC+HS - HbA1c 5.5 - Consistent carbohydrate diet - Blood glucose levels improved and normalized - d/c Amaryl 2. Uncontrolled HTN - Hydralazine 20mg IV Q 6H prn -Cardio consulted- Dr Espinal -cont Coreg, Norvasc and Hydralazine PO 3. 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 Hypokalemia probably due to poor intake and the Beta Agonist used - replete 5. Chronic CHF diastolic Dysfunction. Pro BNP is elevated, although this could be due to the CKD - Consult Dr Tommy Espinal - Repeat ECHO : EF 55-60% - Serial Troponin- negative so far - Serial EKG 6. Anemia of Chronic Renal Disease - Hg dropped 11.3 to 9.1 today, however this is likely dilutional given IV fluids - Monitor CBC 7. 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 Stress ulcer prophylaxis with Pantoprazole #. DVT Proph with Lovenox Discharge Exam - Head Exam Head Exam: ATRAUMATIC, NORMAL INSPECTION, NORMOCEPHALIC - Eye Exam Eye Exam: EOMI, Normal appearance Pupil Exam: NORMAL ACCOMODATION - ENT Exam ENT Exam: Mucous Membranes Moist, Normal External Ear Exam - Neck Exam Neck exam: Full Rom - Respiratory Exam Respiratory Exam: NORMAL BREATHING PATTERN. absent: Respiratory Distress - Cardiovascular Exam Cardiovascular Exam: REGULAR RHYTHM, +S1, +S2 - GI/Abdominal Exam GI & Abdominal Exam: Normal Bowel Sounds, Soft. absent: Tenderness - Extremities Exam Extremities exam: normal capillary refill, pedal edema, pedal pulses present - Back Exam Back exam: absent: CVA tenderness (L), CVA tenderness (R) - Neurological Exam Neurological exam: Alert, Oriented x3 Additional comments: left hemiparesis dysarthria but comprehensible - Psychiatric Exam Psychiatric exam: Normal Affect, Normal Mood - Skin Skin Exam: Dry, Normal Color, Warm Discharge Plan - Discharge Medications Prescriptions: RX: Allopurinol [Zyloprim] 100 mg PO DAILY #30 tab RX: Finasteride [Proscar] 5 mg PO DAILY #30 tab RX: Furosemide [Lasix] 20 mg PO DAILY #30 tab RX: hydrALAZINE [Apresoline] 25 mg PO Q6 #120 tab RX: Sodium Bicarbonate Tab 1,300 mg PO BID #120 tab RX: Tamsulosin [Flomax] 0.4 mg PO DAILY #30 cap - Follow Up Plan Condition: IMPROVED Disposition: AGAINST MEDICAL ADVICE Additional Instructions: ff up with Dr Lauren mcintosh appt with PMHelena mcintosh- Dr Lagos Referrals: Hugo Lagos MD [Staff Provider] - Adama Aguilar MD [Staff Provider] -
[2018-03-06 16:05] VITALS: BP 149/84; PULSE 63; TEMP 98; O2SAT 98
[2018-03-07 03:39] LABS: ALBUMIN (PEP) 3.1 g/dL (3.8-4.8); ALPHA-1-GLOBULIN (PEP) 0.3 g/dL (0.2-0.3)
[2018-03-07 11:36] LABS: CARDIOLIPIN AB (IGA) <11 APL (<=11)
== END 2018-03-06 18:21 | disposition left against medical advice (07) | DRG 637 ==
LOC: H.ER 20:35 → H.ERHOLD 22:37 → H.ICU/CCU 03-03 01:38 → H.TEL 03-03 18:49
PROVIDERS: ADMIT Internal Medicine; ATTEND Internal Medicine
DX: E11.641 Type 2 diabetes mellitus with hypoglycemia with coma (principal); G93.41 Metabolic encephalopathy; I13.2 Hypertensive heart and chronic kidney disease with heart failure and with stage 5 chronic kidney disease, or end stage renal disease; I69.351 Hemiplegia and hemiparesis following cerebral infarction affecting right dominant side; I50.32 Chronic diastolic (congestive) heart failure; E87.2 Acidosis; N18.5 Chronic kidney disease, stage 5; N17.9 Acute kidney failure, unspecified; E11.22 Type 2 diabetes mellitus with diabetic chronic kidney disease; E87.6 Hypokalemia; I48.91 Unspecified atrial fibrillation; I69.322 Dysarthria following cerebral infarction; Z87.891 Personal history of nicotine dependence; Z91.14 Patient's other noncompliance with medication regimen; I16.0 Hypertensive urgency; K59.00 Constipation, unspecified; Z91.19 Patient's noncompliance with other medical treatment and regimen; M89.9 Disorder of bone, unspecified; D63.1 Anemia in chronic kidney disease; T38.3X5A Adverse effect of insulin and oral hypoglycemic [antidiabetic] drugs, initial encounter; N40.1 Benign prostatic hyperplasia with lower urinary tract symptoms; R33.8 Other retention of urine; J98.01 Acute bronchospasm